=== PATIENT | male | born 1940 | race Caucasian/White ===

== ENCOUNTER 2019-08-05 14:55 | Emergency (ER) | payer MEDICARE, MEDICAID ==
[~2019-08-05] VITALS: Ht 180.3 cm; Wt 92.3 kg
[2019-08-05] MEDS ORDERED: ipratropium/albuterol 3ml nebule NEB ONE (15:25)
[2019-08-05] MEDS ORDERED: BENZ-16 PO (15:49)
[2019-08-05] MEDS ORDERED: AZIT500T PO (15:49)
[2019-08-05 16:43] VITALS: BP 146/89
== END 2019-08-05 16:49 | disposition home or self-care (01) ==
LOC: ER 14:56
DX: J44.1 Chronic obstructive pulmonary disease with (acute) exacerbation (principal); F17.200 Nicotine dependence, unspecified, uncomplicated; Z79.2 Long term (current) use of antibiotics; Z79.899 Other long term (current) drug therapy
CPT/HCPCS: 71045; 94640; 94760; 99283

== ENCOUNTER 2019-08-09 10:44 | Inpatient (IN) | payer MEDICARE, MEDICAID ==
[~2019-08-09] VITALS: Ht 180.3 cm; Wt 92.0 kg
[~2019-08-09 10:44] MED LIST: AZIT500T PO; BENZ-16 PO
[2019-08-09] MEDS ORDERED: CefTRIAXone 2gm/D5W 50ml 50 ML IV ONE (12:25)
[2019-08-09] MEDS ORDERED: methylPREDNISolone sod succ 125mg/2ml vial IV ONE (12:25)
[2019-08-09] MEDS ORDERED: normal saline 1000ML IV soln IVB ONE (12:25)
[2019-08-09] MEDS ORDERED: ipratropium/albuterol 3ml nebule NEB ONE (12:25)
[2019-08-09 12:51] LABS: BASOPHILS # (AUTO) 0.1 X10'3 (0-0.2); BASOPHILS % (AUTO) 0.9 % (0-1); EOSINOPHILS % (AUTO) 0.3 % (0-6); HEMATOCRIT 48.1 % (42.0-52.0); LYMPHOCYTES # (AUTO) 1.9 X10'3 (1.1-4.8); LYMPHOCYTES % (AUTO) 21.9 % (21-51); MEAN CORPUSCULAR HEMOGLOBIN 30.7 PG (27.0-31.0); MEAN CORPUSCULAR HGB CONC 33.3 g/dL (33.0-36.5); MEAN PLATELET VOLUME 8.5 FL (7.4-10.4); MONOCYTES # (AUTO) 0.6 X10'3 (0-0.9); MONOCYTES % (AUTO) 7.5 % (2-12); NEUTROPHILS # (AUTO) 5.9 X10'3 (1.8-7.7); NEUTROPHILS % (AUTO) 69.4 % (42-75); PLATELET COUNT 313 X10'3 (140-440); RED BLOOD COUNT 5.22 X10'6 (4.70-6.10); RED CELL DISTRIBUTION WIDTH 14.6 % (11.5-14.5); WHITE BLOOD COUNT 8.6 X10'3 (4.5-11.0)
[2019-08-09 13:03] LABS: PARTIAL THROMBOPLASTIN TIME 29 SECONDS (22-32)
[2019-08-09 13:16] LABS: ALANINE AMINOTRANSFERASE 22 U/L (12-78); ALBUMIN 3.1 G/DL (3.4-5.0); ALBUMIN/GLOBULIN RATIO 0.6 (1.1-1.5); ALKALINE PHOSPHATASE 131 IU/L (46-116); ANION GAP 5 (8-16); ASPARTATE AMINO TRANSFERASE 16 U/L (10-37); BILIRUBIN,TOTAL 0.5 MG/DL (0.1-1.0); BLOOD UREA NITROGEN 11 MG/DL (7-18); BUN/CREATININE RATIO 10.9 (5.4-32.0); CALCIUM 9.7 MG/DL (8.5-10.1); CHLORIDE 102 MMOL/L (99-107); CREATININE 1.01 MG/DL (0.60-1.10); GLUCOSE 246 MG/DL (70-104); MAGNESIUM 1.9 MG/DL (1.5-2.4); SODIUM 138 MMOL/L (135-145); TOTAL CARBON DIOXIDE 30.8 MMOL/L (24-32); TOTAL PROTEIN 8.2 G/DL (6.4-8.2); eGFR 72 ML/MIN
[2019-08-09] MEDS ORDERED: azithromycin/NS 500mg/250ml 250 ML IV ONE (13:20)
[2019-08-09] MEDS ORDERED: ondansetron/PF 4mg/2ml inj IV PRN (13:40)
[2019-08-09] MEDS ORDERED: magnesium 4gm in 100ml NS 100 ML IV PRN (13:40)
[2019-08-09] MEDS ORDERED: potassium Cl 20 mEq SR tablet PO PRN ×2 (13:40)
[2019-08-09] MEDS ORDERED: magnesium Cl slow-release 64mg tablet PO PRN (13:40)
[2019-08-09] MEDS ORDERED: magnesium 2GM in 50ml NS 50 ML IV PRN (13:40)
[2019-08-09] MEDS ORDERED: acetaminophen 325mg tablet PO PRN (13:40)
[2019-08-09] MEDS ORDERED: potassium CL 10mEq/100ml bag 100 ML IV PRN ×2 (13:40)
[2019-08-09] MEDS ORDERED: LISI10TA4 PO (14:03)
[2019-08-09] MEDS ORDERED: METF-950 PO (14:03)
[2019-08-09] MEDS ORDERED: ATOR-2 PO (14:03)
--- NOTE | 2019-08-09 15:18 | NUR ---
Patient states that he had a BM yesterday at home Addendum: 08/09/19 at 1521 by Sima Garcia RN Amended: Links added.
[2019-08-09 15:28] VITALS: BP 122/86
[2019-08-09] MEDS ORDERED: FLU VACC QS 2019-20 (6 MOS UP) 60 MCG/0.5 ML VIAL IMVAC ONE (15:40)
--- NOTE | 2019-08-09 18:31 | NUR ---
Problems reprioritized. Patient report given, questions answered & plan of care reviewed with Malick RIVAS.
--- NOTE | 2019-08-09 18:52 | NUR ---
Patient in room PCU 3021J. I have received report from ROB Gao and had the opportunity to ask questions and assume patient care. Patient sitting up at bedside with son. On 2L NC and is saline locked at this time. Per day shift RN report, no DM protocol ordered even though patient is type 2 diabetic and takes metformin at home. Will follow up with night time provider.
[2019-08-09 19:00] VITALS: BP 143/79
[2019-08-09] MEDS ORDERED: dextrose ORAL solution 15 GM/59 ML bottle PO PRN ×2 (19:00)
[2019-08-09] MEDS ORDERED: MESSAGE TO PHARMACY PO ONE (19:00)
[2019-08-09] MEDS ORDERED: glucagon, human recombinant 1mg kit SUBCUT PRN (19:00)
[2019-08-09] MEDS ORDERED: insulin Lispro (HumaLOG) vial - multi-dose SQ SCH (19:00)
[2019-08-09] MEDS ORDERED: dextrose 50%-water 50ml dispensing syringe IV PRN ×2 (19:00)
--- NOTE | 2019-08-09 19:02 | NUR ---
Per Dr. Gray's orders, will start patient on DM protocol. CO2 30.8, anion gap 5, patient eating solid food. Will continue to monitor closely.
[2019-08-09] MEDS: K and/or MAG REPLACEMENT MC SCH (19:53)
[2019-08-09] MEDS: methylPREDNISolone sod succ/PF 40mg inj. IV SCH (19:57)
[2019-08-09] MEDS: heparin, porcine 5000 units/ml vial SQ SCH (19:57)
[2019-08-09] MEDS: ipratropium/albuterol 3ml nebule NEB SCH ×2 (20:46→23:17)
[2019-08-09] MEDS: insulin glargine (Lantus) pen - multi-dose SQ SCH (21:55)
--- NOTE | 2019-08-09 22:00 | NUR ---
Patient blood glucose level 246 at 1229 in ER. Initiated DM protocol that had not been started by day shift RN despite given orders. 2143 blood glucose 164. 12 units Lantus administered per nursing judgement, even though patient has not met protocol standards. Will continue to monitor closely.
[2019-08-09 23:00] VITALS: BP 106/69
[2019-08-09 23:10] LABS: ABG BASE EXCESS 2.3 mmol/L (-2.0-3.0); ABG HCO3 27.9 mmol/L (22.0-26.0); ABG OXYGEN SATURATION 94.5 % (95-98); ABG PCO2 (T) 46.8 mmHg (35.0-45.0); ABG PH (T) 7.393 (7.350-7.450); ABG PO2 (T) 72.2 mmHg (83-108); ALLEN'S TEST POSITIVE; FCOHb 0.2 % (0.5-1.5); FLOW 2 L/min; FMetHb 0.2 % (0.3-1.12); FO2Hb 94.1 % (94-100); TOTAL HEMOGLOBIN 15.3 G/dl (14.0-17.9)
[2019-08-10 03:00] VITALS: BP 148/70
[2019-08-10] MEDS: ipratropium/albuterol 3ml nebule NEB SCH ×6 (03:24→23:26)
[2019-08-10 05:18] LABS: BASOPHILS % (AUTO) 0.1 % (0-1); EOSINOPHILS % (AUTO) 0 % (0-6); HEMATOCRIT 44.3 % (42.0-52.0); HEMOGLOBIN 14.3 g/dl (14.0-17.9); LYMPHOCYTES # (AUTO) 1.5 X10'3 (1.1-4.8); LYMPHOCYTES % (AUTO) 13.1 % (21-51); MEAN CORPUSCULAR HEMOGLOBIN 29.8 PG (27.0-31.0); MEAN CORPUSCULAR HGB CONC 32.3 g/dL (33.0-36.5); MEAN PLATELET VOLUME 8.5 FL (7.4-10.4); MONOCYTES # (AUTO) 0.5 X10'3 (0-0.9); NEUTROPHILS # (AUTO) 9.3 X10'3 (1.8-7.7); NEUTROPHILS % (AUTO) 82.8 % (42-75); PLATELET COUNT 297 X10'3 (140-440); RED BLOOD COUNT 4.81 X10'6 (4.70-6.10); RED CELL DISTRIBUTION WIDTH 14.6 % (11.5-14.5); WHITE BLOOD COUNT 11.3 X10'3 (4.5-11.0)
[2019-08-10 05:34] LABS: ALBUMIN 2.8 G/DL (3.4-5.0); ANION GAP 6 (8-16); BLOOD UREA NITROGEN 15 MG/DL (7-18); BUN/CREATININE RATIO 19.2 (5.4-32.0); CALCIUM 9.1 MG/DL (8.5-10.1); CHLORIDE 104 MMOL/L (99-107); CREATININE 0.78 MG/DL (0.60-1.10); GLUCOSE 165 MG/DL (70-104); MAGNESIUM 1.8 MG/DL (1.5-2.4); SODIUM 138 MMOL/L (135-145); TOTAL CARBON DIOXIDE 28.3 MMOL/L (24-32); eGFR > 90 ML/MIN
[2019-08-10 05:36] LABS: POTASSIUM 4.5 MMOL/L (3.5-5.1)
[2019-08-10 06:00] VITALS: BP 119/58
--- NOTE | 2019-08-10 06:24 | NUR ---
Problems reprioritized. Patient report given, questions answered & plan of care reviewed with ROB Shields.
[2019-08-10] MEDS: heparin, porcine 5000 units/ml vial SQ SCH ×2 (07:54→20:00)
[2019-08-10] MEDS: K and/or MAG REPLACEMENT MC SCH ×2 (08:00→20:00)
[2019-08-10] MEDS: azithromycin/NS 500mg/250ml 250 ML IV SCH (08:01)
[2019-08-10] MEDS: methylPREDNISolone sod succ/PF 40mg inj. IV SCH ×2 (08:01→20:00)
[2019-08-10 08:54] LABS: CLARITY,URINE CLEAR (Clear); COLOR,URINE YELLOW (Yellow); GLUCOSE, URINE NEGATIVE (Neg); KETONES,URINE NEGATIVE (Neg); LEUKOCYTE ESTERASE ,URINE NEGATIVE (Neg); NITRITES, URINE NEGATIVE (Neg); OCCULT BLOOD,URINE NEGATIVE (Neg); PROTEIN,URINE 100 mg/dl (Neg); UROBILINOGEN,URINE 0.2 E.U/dL (0.2-1.0)
[2019-08-10 08:56] LABS: UA COLLECTION TYPE CLN CATCH MIDSTREAM
[2019-08-10 09:00] LABS: RBC,URINE NONE SEEN /HPF (0-2); WBC,URINE 0-4 /HPF (0-4)
[2019-08-10 09:01] LABS: BACTERIA,URINE NONE SEEN /HPF (Neg); HYALINE CASTS 0-3 /LPF (NEGATIVE); MUCUS STRANDS MANY /LPF (Neg); SQUAMOUS EPITHELIAL CELL,UR FEW /LPF (FEW)
[2019-08-10] MEDS: lisinopril 10 MG tablet PO SCH (12:07)
[2019-08-10] MEDS: CefTRIAXone/D5W-Rocephin 1gm 50 ML IV SCH (12:13)
[2019-08-10 15:00] VITALS: BP 129/64
--- NOTE | 2019-08-10 18:28 | NUR ---
Problems reprioritized. Patient report given, questions answered & plan of care reviewed with Malick RIVAS.
[2019-08-10 18:51] VITALS: BP 131/63
[2019-08-10] MEDS: lactobacillus rhamnosus 10,000 MMU CELLS/CAPSULE PO SCH (20:00)
[2019-08-10] MEDS: insulin glargine (Lantus) pen - multi-dose SQ SCH (21:00)
[2019-08-10 23:00] VITALS: BP 138/79
[2019-08-11 03:00] VITALS: BP 112/63
[2019-08-11] MEDS: ipratropium/albuterol 3ml nebule NEB SCH ×4 (03:38→15:29)
[2019-08-11 06:08] LABS: BASOPHILS % (AUTO) 0.1 % (0-1); EOSINOPHILS % (AUTO) 0 % (0-6); HEMATOCRIT 41.8 % (42.0-52.0); HEMOGLOBIN 13.7 g/dl (14.0-17.9); LYMPHOCYTES # (AUTO) 1.8 X10'3 (1.1-4.8); LYMPHOCYTES % (AUTO) 11.5 % (21-51); MEAN CORPUSCULAR HEMOGLOBIN 30.1 PG (27.0-31.0); MEAN CORPUSCULAR HGB CONC 32.8 g/dL (33.0-36.5); MEAN CORPUSCULAR VOLUME 91.9 FL (78-98); MEAN PLATELET VOLUME 8.4 FL (7.4-10.4); MONOCYTES % (AUTO) 6.3 % (2-12); NEUTROPHILS # (AUTO) 12.5 X10'3 (1.8-7.7); NEUTROPHILS % (AUTO) 82.1 % (42-75); PLATELET COUNT 290 X10'3 (140-440); RED BLOOD COUNT 4.55 X10'6 (4.70-6.10); RED CELL DISTRIBUTION WIDTH 14.8 % (11.5-14.5); WHITE BLOOD COUNT 15.3 X10'3 (4.5-11.0)
--- NOTE | 2019-08-11 06:09 | NUR ---
Problems reprioritized. Patient report given, questions answered & plan of care reviewed with ROB Thomas.
[2019-08-11 06:16] LABS: ALBUMIN 2.8 G/DL (3.4-5.0); ANION GAP 1 (8-16); BLOOD UREA NITROGEN 19 MG/DL (7-18); BUN/CREATININE RATIO 22.6 (5.4-32.0); CALCIUM 9.1 MG/DL (8.5-10.1); CHLORIDE 104 MMOL/L (99-107); CREATININE 0.84 MG/DL (0.60-1.10); GLUCOSE 129 MG/DL (70-104); POTASSIUM 4.8 MMOL/L (3.5-5.1); SODIUM 139 MMOL/L (135-145); TOTAL CARBON DIOXIDE 33.8 MMOL/L (24-32); eGFR 89 ML/MIN
--- NOTE | 2019-08-11 06:24 | NUR ---
Patient in room PCU 3026V. I have received report from Malick RIVAS and had the opportunity to ask questions and assume patient care.
[2019-08-11 06:30] VITALS: BP 153/75
[2019-08-11] MEDS ORDERED: pantoprazole 40mg Tablet.DR PO SCH (07:30)
[2019-08-11] MEDS: CefTRIAXone/D5W-Rocephin 1gm 50 ML IV SCH (07:58)
[2019-08-11] MEDS: methylPREDNISolone sod succ/PF 40mg inj. IV SCH (07:58)
[2019-08-11] MEDS: lactobacillus rhamnosus 10,000 MMU CELLS/CAPSULE PO SCH (07:59)
[2019-08-11] MEDS: lisinopril 10 MG tablet PO SCH (07:59)
[2019-08-11] MEDS: heparin, porcine 5000 units/ml vial SQ SCH (08:00)
[2019-08-11] MEDS ORDERED: atorvastatin 20mg tablet PO SCH (08:00)
[2019-08-11] MEDS: K and/or MAG REPLACEMENT MC SCH (08:00)
[2019-08-11] MEDS: azithromycin/NS 500mg/250ml 250 ML IV SCH (09:05)
[2019-08-11 11:00] VITALS: BP 105/34
--- NOTE | 2019-08-11 11:47 | NUR ---
PAGER ID: [phone] MESSAGE: Martha mccoy [phone]. Re Greg Fox 3025A. Can I have and order for a flutter valve and incentive spirometer? Thank you!
--- NOTE | 2019-08-11 15:21 | NUR ---
O2 Sat at rest on room air:_85__% If below 89%: Recovery O2 Sat at rest on __2_LPM:__92_%:___% via___nasal cannula (mask/nasal cannula, etc..) No further documentation is necessary. If O2 Sat did not drop below 89% on room air,ambulate patient on room air. O2 Sat while ambulating on room air:___% Recovery O2 Sat while ambulating on ___LPM:___% No further documentation is necessary. If patient does not drop below 89% while ambulating, he/she does not qualify for home O2.
--- NOTE | 2019-08-11 15:27 | NUR ---
Zafar GARCIA PAGER ID: [phone] MESSAGE: Martha [email or web address] [phone]. RE Greg Fox 3025A. [facility] chest x-ray showed "opacity along the medial right lower lobe is decreased from the previous exam." PT also walked 300 ft with 2 L O2 via NC, was 85% on room air-- qualified for O2.
--- NOTE | 2019-08-11 15:55 | NUR ---
Called case management to make aware that patient qualifies for home 02 and also paged MD to make aware. Waiting to hear back if case management will be able to setup O2 for this evening, discharge pending.
[2019-08-11] MEDS ORDERED: PRED10TA23 PO (16:10)
[2019-08-11] MEDS ORDERED: ALBU8.5H8 INH (16:10)
[2019-08-11] MEDS ORDERED: LACT1CAP26 PO (16:10)
[2019-08-11] MEDS ORDERED: LEVO750T46 PO (16:10)
[2019-08-11] MEDS ORDERED: PANT40TA4 PO (16:10)
[2019-08-11] MEDS ORDERED: BUDE10.22 INH (16:10)
[2019-08-11] MEDS ORDERED: levoFLOXACIN 750MG TABLET PO ONE (16:15)
--- NOTE | 2019-08-11 17:28 | NUR ---
Per MD, patient stable for discharge home. Discharge packet completed and provided to patient. All questions answered. Patient also provided with flutter valve and incentive spirometer, education given and patient returned demonstration. New prescriptions faxed to [facility] [employer] per patient pharmacy preference. IV removed with catheter intact and tele monitor removed and returned to telegrapher agent. Oxygen delivered by [facility] and given to patient for discharge. All belongings sent with patient. Patient escorted from hospital via wheelchair and accompanied by staff and friend. Patient driven home via private vehicle
== END 2019-08-11 17:28 | disposition home or self-care (01) | DRG 193 ==
LOC: ER 10:45 → UNDOADMIN 13:39 → ED HOLD 13:39 → PCU 3S 14:39 → ED HOLD 15:25
PROVIDERS: ADMIT Internal Medicine; ATTEND Family Medicine
DX: J18.9 Pneumonia, unspecified organism (principal); J96.90 Respiratory failure, unspecified, unspecified whether with hypoxia or hypercapnia; J44.1 Chronic obstructive pulmonary disease with (acute) exacerbation; E11.65 Type 2 diabetes mellitus with hyperglycemia; E78.00 Pure hypercholesterolemia, unspecified; E78.5 Hyperlipidemia, unspecified; F12.90 Cannabis use, unspecified, uncomplicated; F17.210 Nicotine dependence, cigarettes, uncomplicated; I10 Essential (primary) hypertension; Z79.84 Long term (current) use of oral hypoglycemic drugs; Z79.899 Other long term (current) drug therapy; Z28.21 Immunization not carried out because of patient refusal
CPT/HCPCS: 36415; 36600; 71046; 80048; 80053; 81001; 82803; 82948; 83036; 83605; 83735; 83880; 84145; 84484; 85018; 85025; 85610; 85730; 87040; 87081; 93005; 94640; 94760; G0378; J0456; J0696; J1644; J1815; J2920; J2930; J7030; Q2037

== ENCOUNTER 2020-09-20 09:59 | Emergency (ER) | payer MEDICARE, MEDICAID ==
[~2020-09-20] VITALS: Ht 177.8 cm; Wt 95.0 kg
[~2020-09-20 09:59] MED LIST changes: +ALBU8.5H8 INH; +ATOR-2 PO; -AZIT500T PO; -BENZ-16 PO; +BUDE10.22 INH; +LACT1CAP26 PO; +LISI10TA27 PO; +METF-950 PO; +PANT40TA54 PO
[2020-09-20 11:04] LABS: BASOPHILS # (AUTO) 0.1 X10'3 (0-0.2); BASOPHILS % (AUTO) 0.9 % (0-1); EOSINOPHILS # (AUTO) 0.3 X10'3 (0-0.9); EOSINOPHILS % (AUTO) 3.1 % (0-6); HEMATOCRIT 50.2 % (42.0-52.0); HEMOGLOBIN 16.5 g/dl (14.0-17.9); LYMPHOCYTES # (AUTO) 2.3 X10'3 (1.1-4.8); MEAN CORPUSCULAR HEMOGLOBIN 31.4 PG (27.0-31.0); MEAN CORPUSCULAR HGB CONC 32.9 g/dL (33.0-36.5); MEAN CORPUSCULAR VOLUME 95.4 FL (78-98); MEAN PLATELET VOLUME 7.6 FL (7.4-10.4); MONOCYTES # (AUTO) 0.7 X10'3 (0-0.9); MONOCYTES % (AUTO) 7.4 % (2-12); NEUTROPHILS # (AUTO) 6.1 X10'3 (1.8-7.7); NEUTROPHILS % (AUTO) 64.6 % (42-75); PLATELET COUNT 273 X10'3 (140-440); RED BLOOD COUNT 5.27 X10'6 (4.70-6.10); RED CELL DISTRIBUTION WIDTH 15.1 % (11.5-14.5); WHITE BLOOD COUNT 9.5 X10'3 (4.5-11.0)
[2020-09-20] MEDS ORDERED: ipratropium/albuterol 3ml nebule NEB ONE (11:10)
[2020-09-20 11:17] LABS: ALANINE AMINOTRANSFERASE 23 U/L (12-78); ALBUMIN 3.4 G/DL (3.4-5.0); ALBUMIN/GLOBULIN RATIO 0.7 (1.1-1.5); ALKALINE PHOSPHATASE 133 IU/L (46-116); ANION GAP 7 (8-16); ASPARTATE AMINO TRANSFERASE 14 U/L (10-37); BILIRUBIN,TOTAL 0.8 MG/DL (0.1-1.0); BLOOD UREA NITROGEN 12 MG/DL (7-18); BUN/CREATININE RATIO 15.8 (5.4-32.0); CALCIUM 9.5 MG/DL (8.5-10.1); CHLORIDE 102 MMOL/L (99-107); CREATININE 0.76 MG/DL (0.60-1.10); GLUCOSE 138 MG/DL (70-104); POTASSIUM 4.5 MMOL/L (3.5-5.1); SODIUM 140 MMOL/L (135-145); TOTAL CARBON DIOXIDE 30.7 MMOL/L (24-32); TOTAL PROTEIN 8.1 G/DL (6.4-8.2); eGFR > 90 ML/MIN
[2020-09-20] MEDS ORDERED: IPRA3AMP31 IH (11:38)
[2020-09-20] MEDS ORDERED: BUDE10.22 INH (11:38)
[2020-09-20 12:14] VITALS: BP 138/79
== END 2020-09-20 12:15 | disposition home or self-care (01) ==
LOC: ER 09:59
DX: J44.1 Chronic obstructive pulmonary disease with (acute) exacerbation (principal); E78.00 Pure hypercholesterolemia, unspecified; I10 Essential (primary) hypertension; E11.9 Type 2 diabetes mellitus without complications; F17.200 Nicotine dependence, unspecified, uncomplicated; F12.90 Cannabis use, unspecified, uncomplicated; Z79.899 Other long term (current) drug therapy; Z79.84 Long term (current) use of oral hypoglycemic drugs
CPT/HCPCS: 36415; 71045; 80053; 83880; 84484; 85025; 93005; 94640; 94760; 99285

== ENCOUNTER 2021-11-03 16:05 | Emergency (ER) | payer MEDICARE, MEDICAID ==
[~2021-11-03] VITALS: Ht 180.3 cm; Wt 90.9 kg
[~2021-11-03 16:05] MED LIST changes: +ALBU8.5H17 INH; -ALBU8.5H8 INH; +COR3.125T PO; +ERGO500041 PO; +FURO-150 PO; +IPRA3AMP31 IH; -LACT1CAP26 PO; +METF-1203 PO; -METF-950 PO; +PANT40SU2 PO; -PANT40TA54 PO; +PRED20TA PO
--- NOTE | 2021-11-03 16:41 | NUR ---
NOTIFIED REJI GALEANA THAT PT IS SOB HR IN BTW 120-150'S .ORDERED ACS PROTOCOL ,ORIGINIAL CAME FOR CONSTIPATION.
--- NOTE | 2021-11-03 16:46 | NUR ---
PT USING BEDSIDECOMMODE AT THIS TIME.
[2021-11-03] MEDS ORDERED: potassium chloride 8mEq ER tablet PO STA (17:04)
[2021-11-03] MEDS ORDERED: furosemide 10 MG/1 ML 10ml inj IV ONE (17:05)
[2021-11-03] MEDS ORDERED: potassium Cl 20 mEq SR tablet PO STA (17:29)
[2021-11-03 17:34] LABS: BASOPHILS % (AUTO) 0.3 % (0-1); EOSINOPHILS % (AUTO) 0.3 % (0-6); HEMOGLOBIN 13.3 g/dl (14.0-17.9); LYMPHOCYTES # (AUTO) 1.3 X10'3 (1.1-4.8); LYMPHOCYTES % (AUTO) 9.3 % (21-51); MEAN CORPUSCULAR HEMOGLOBIN 28.7 PG (27.0-31.0); MEAN CORPUSCULAR HGB CONC 31.6 g/dL (33.0-36.5); MEAN PLATELET VOLUME 8.2 FL (7.4-10.4); MONOCYTES # (AUTO) 1.3 X10'3 (0-0.9); NEUTROPHILS # (AUTO) 11.8 X10'3 (1.8-7.7); NEUTROPHILS % (AUTO) 81.1 % (42-75); PLATELET COUNT 245 X10'3 (140-440); RED BLOOD COUNT 4.62 X10'6 (4.70-6.10); RED CELL DISTRIBUTION WIDTH 16.6 % (11.5-14.5); WHITE BLOOD COUNT 14.5 X10'3 (4.5-11.0)
[2021-11-03 17:47] LABS: ALANINE AMINOTRANSFERASE 82 U/L (12-78); ALBUMIN 2.4 G/DL (3.4-5.0); ALBUMIN/GLOBULIN RATIO 0.5 (1.1-1.5); ALKALINE PHOSPHATASE 113 IU/L (46-116); ANION GAP 3 (8-16); ASPARTATE AMINO TRANSFERASE 34 U/L (10-37); BILIRUBIN,TOTAL 1.1 MG/DL (0.1-1.0); BLOOD UREA NITROGEN 22 MG/DL (7-18); BUN/CREATININE RATIO 25.3 (5.4-32.0); CALCIUM 8.7 MG/DL (8.5-10.1); CHLORIDE 100 MMOL/L (99-107); CREATININE 0.87 MG/DL (0.60-1.10); GLUCOSE 147 MG/DL (70-104); POTASSIUM 4.4 MMOL/L (3.5-5.1); SODIUM 137 MMOL/L (135-145); TOTAL CARBON DIOXIDE 33.7 MMOL/L (24-32); TOTAL PROTEIN 6.8 G/DL (6.4-8.2); eGFR 85 ML/MIN
[2021-11-03] MEDS ORDERED: mineral oil 133ml enema RC PRN (18:15)
--- NOTE | 2021-11-03 18:17 | NUR ---
notified lyle ma that pt is still c/o constipation ,uncomfortable moving up and down out of bed ,requesting for enema .hr still in btw 100-130's.
--- NOTE | 2021-11-03 18:30 | NUR ---
mineral oil enema admin .financial services sales representative at bedside for assistance,pt did had small hard bm before admin mineral oil enema.
[2021-11-03] MEDS ORDERED: LACT10SO57 PO ×2 (19:15)
[2021-11-03 20:29] VITALS: BP 134/96
[2021-11-11] MEDS ORDERED: LACT10SO3 PO (16:44)
[2021-11-11] MEDS ORDERED: ALBU8.5H17 INH (17:17)
[2021-11-11] MEDS ORDERED: FURO20TA4 PO (17:26)
[2021-11-11] MEDS ORDERED: CARV3.122 PO (17:26)
== END 2021-11-03 20:32 | disposition home or self-care (01) ==
LOC: ER 16:06
DX: K59.00 Constipation, unspecified (principal); I11.0 Hypertensive heart disease with heart failure; I50.9 Heart failure, unspecified; E78.00 Pure hypercholesterolemia, unspecified; J44.9 Chronic obstructive pulmonary disease, unspecified; E11.9 Type 2 diabetes mellitus without complications; F12.90 Cannabis use, unspecified, uncomplicated; Z87.01 Personal history of pneumonia (recurrent); Z79.899 Other long term (current) drug therapy
CPT/HCPCS: 36415; 71045; 80053; 83880; 84484; 85025; 93005; 96374; 99285; J1940

== ENCOUNTER 2022-03-04 02:37 | Emergency (ER) | payer MEDICARE, MEDICAID ==
[~2022-03-04] VITALS: Ht 177.8 cm; Wt 92.3 kg
[~2022-03-04 02:37] MED LIST changes: +ALBU18HF2 IH; -ALBU8.5H17 INH; +AMIO200T67 PO; +APIX5TAB3 PO; +CARV3.122 PO; +CEPH250T PO; -COR3.125T PO; -ERGO500041 PO; +FLUC100T64 PO; +LACT1CAP26 PO; -LISI10TA27 PO; +LISI5TAB22 PO; -METF-1203 PO; +METF-436 PO; -PANT40SU2 PO; +POTA10TA PO; -PRED20TA PO
[2022-03-04 02:40] VITALS: BP 101/74
[2022-03-04 03:20] LABS: ALANINE AMINOTRANSFERASE 73 U/L (12-78); ALBUMIN 2.3 G/DL (3.4-5.0); ALBUMIN/GLOBULIN RATIO 0.5 (1.1-1.5); ALKALINE PHOSPHATASE 131 IU/L (46-116); ANION GAP 3 (8-16); ASPARTATE AMINO TRANSFERASE 87 U/L (10-37); BILIRUBIN,TOTAL 0.5 MG/DL (0.1-1.0); BLOOD UREA NITROGEN 28 MG/DL (7-18); BUN/CREATININE RATIO 25.7 (5.4-32.0); CALCIUM 8.8 MG/DL (8.5-10.1); CHLORIDE 103 MMOL/L (99-107); CREATININE 1.09 MG/DL (0.60-1.10); GLUCOSE 139 MG/DL (70-104); SODIUM 141 MMOL/L (135-145); TOTAL CARBON DIOXIDE 34.8 MMOL/L (24-32); TOTAL PROTEIN 6.8 G/DL (6.4-8.2); eGFR 65 ML/MIN
[2022-03-04 03:30] LABS: POTASSIUM 4.9 MMOL/L (3.5-5.1)
[2022-03-04 03:34] LABS: BASOPHILS # (AUTO) 0.1 X10'3 (0-0.2); BASOPHILS % (AUTO) 1.1 % (0-1); EOSINOPHILS # (AUTO) 0.2 X10'3 (0-0.9); EOSINOPHILS % (AUTO) 2.9 % (0-6); HEMATOCRIT 33.3 % (42.0-52.0); HEMOGLOBIN 10.7 g/dl (14.0-17.9); LYMPHOCYTES # (AUTO) 1.9 X10'3 (1.1-4.8); LYMPHOCYTES % (AUTO) 22.9 % (21-51); MEAN CORPUSCULAR HEMOGLOBIN 30.8 PG (27.0-31.0); MEAN CORPUSCULAR VOLUME 96.1 FL (78-98); MEAN PLATELET VOLUME 8.8 FL (7.4-10.4); MONOCYTES # (AUTO) 0.7 X10'3 (0-0.9); MONOCYTES % (AUTO) 8.4 % (2-12); NEUTROPHILS # (AUTO) 5.3 X10'3 (1.8-7.7); NEUTROPHILS % (AUTO) 64.7 % (42-75); PLATELET COUNT 190 X10'3 (140-440); RED BLOOD COUNT 3.47 X10'6 (4.70-6.10); RED CELL DISTRIBUTION WIDTH 18.1 % (11.5-14.5); WHITE BLOOD COUNT 8.2 X10'3 (4.5-11.0)
[2022-03-04] MEDS ORDERED: furosemide 10 MG/1 ML 10ml inj IV ONE (04:30)
[2022-03-04 05:43] LABS: PLATELET ESTIMATE NORMAL; TOTAL CELLS COUNTED 100
[2022-03-04 05:44] LABS: ANISOCYTOSIS 2+
== END 2022-03-04 07:09 | disposition home or self-care (01) ==
LOC: ER 02:37
DX: I11.0 Hypertensive heart disease with heart failure (principal); I50.9 Heart failure, unspecified; J44.9 Chronic obstructive pulmonary disease, unspecified; F12.90 Cannabis use, unspecified, uncomplicated; Z91.041 Radiographic dye allergy status
CPT/HCPCS: 36415; 71045; 80053; 83880; 84484; 85007; 85025; 85610; 93005; 96374; 99285; J1940

== ENCOUNTER 2022-03-09 12:55 | Emergency (ER) | payer MEDICARE, MEDICAID ==
[~2022-03-09] VITALS: Ht 180.3 cm; Wt 92.0 kg
[2022-03-09 15:02] LABS: BASOPHILS # (AUTO) 0.1 X10'3 (0-0.2); BASOPHILS % (AUTO) 1.2 % (0-1); EOSINOPHILS # (AUTO) 0.1 X10'3 (0-0.9); EOSINOPHILS % (AUTO) 1.2 % (0-6); HEMATOCRIT 33.1 % (42.0-52.0); HEMOGLOBIN 10.7 g/dl (14.0-17.9); LYMPHOCYTES # (AUTO) 1.4 X10'3 (1.1-4.8); LYMPHOCYTES % (AUTO) 23.8 % (21-51); MEAN CORPUSCULAR HEMOGLOBIN 30.8 PG (27.0-31.0); MEAN CORPUSCULAR HGB CONC 32.2 g/dL (33.0-36.5); MEAN CORPUSCULAR VOLUME 95.6 FL (78-98); MONOCYTES # (AUTO) 0.6 X10'3 (0-0.9); MONOCYTES % (AUTO) 10.5 % (2-12); NEUTROPHILS # (AUTO) 3.7 X10'3 (1.8-7.7); NEUTROPHILS % (AUTO) 63.3 % (42-75); PLATELET COUNT 257 X10'3 (140-440); RED BLOOD COUNT 3.47 X10'6 (4.70-6.10); RED CELL DISTRIBUTION WIDTH 17.8 % (11.5-14.5); WHITE BLOOD COUNT 5.8 X10'3 (4.5-11.0)
[2022-03-09 15:08] LABS: ALANINE AMINOTRANSFERASE 45 U/L (12-78); ALBUMIN 2.6 G/DL (3.4-5.0); ALBUMIN/GLOBULIN RATIO 0.6 (1.1-1.5); ALKALINE PHOSPHATASE 158 IU/L (46-116); ANION GAP 3 (8-16); ASPARTATE AMINO TRANSFERASE 28 U/L (10-37); BILIRUBIN,TOTAL 0.4 MG/DL (0.1-1.0); BLOOD UREA NITROGEN 41 MG/DL (7-18); BUN/CREATININE RATIO 31.3 (5.4-32.0); CALCIUM 9.5 MG/DL (8.5-10.1); CHLORIDE 102 MMOL/L (99-107); CREATININE 1.31 MG/DL (0.60-1.10); GLUCOSE 128 MG/DL (70-104); POTASSIUM 4.8 MMOL/L (3.5-5.1); SODIUM 142 MMOL/L (135-145); TOTAL CARBON DIOXIDE 36.6 MMOL/L (24-32); TOTAL PROTEIN 7.3 G/DL (6.4-8.2); eGFR 53 ML/MIN
[2022-03-09 15:16] VITALS: BP_DIAS 63
[2022-03-09] MEDS ORDERED: potassium Cl 20 mEq SR tablet PO STA (16:34)
[2022-03-09] MEDS ORDERED: furosemide 10 MG/1 ML 10ml inj IV ONE (16:35)
[2022-03-09] MEDS ORDERED: metoprolol tartrate 1mg/ml inj IV ONE (17:25)
[2022-03-09 17:37] VITALS: BP_SYST 151
[2022-03-09] MEDS ORDERED: ipratropium/albuterol 3ml nebule NEB ONE (18:15)
[2022-03-09] MEDS ORDERED: methylPREDNISolone sod succ 125mg/2ml vial IM ONE (18:20)
== END 2022-03-09 19:50 | disposition home or self-care (01) ==
LOC: ER 12:55
DX: I11.0 Hypertensive heart disease with heart failure (principal); I50.9 Heart failure, unspecified; R06.02 Shortness of breath; R05.9 Cough, unspecified; R53.1 Weakness; E78.00 Pure hypercholesterolemia, unspecified; J44.9 Chronic obstructive pulmonary disease, unspecified; E11.9 Type 2 diabetes mellitus without complications; F12.90 Cannabis use, unspecified, uncomplicated; Z87.01 Personal history of pneumonia (recurrent); Z88.1 Allergy status to other antibiotic agents; Z79.2 Long term (current) use of antibiotics; Z79.899 Other long term (current) drug therapy
CPT/HCPCS: 36415; 71045; 80053; 83880; 84484; 85025; 93005; 94640; 96372; 96374; 96375; 99285; J1940; J2930; J3490; 94760

== ENCOUNTER 2022-03-11 20:36 | Emergency (ER) | payer MEDICARE, MEDICAID ==
[~2022-03-11] VITALS: Ht 177.8 cm; Wt 92.3 kg
[2022-03-11 22:05] LABS: BASOPHILS # (AUTO) 0.1 X10'3 (0-0.2); BASOPHILS % (AUTO) 0.7 % (0-1); EOSINOPHILS % (AUTO) 0.6 % (0-6); HEMATOCRIT 31.6 % (42.0-52.0); HEMOGLOBIN 10.5 g/dl (14.0-17.9); LYMPHOCYTES % (AUTO) 25.9 % (21-51); MEAN CORPUSCULAR HEMOGLOBIN 31.8 PG (27.0-31.0); MEAN CORPUSCULAR HGB CONC 33.3 g/dL (33.0-36.5); MEAN CORPUSCULAR VOLUME 95.4 FL (78-98); MEAN PLATELET VOLUME 7.7 FL (7.4-10.4); MONOCYTES # (AUTO) 0.7 X10'3 (0-0.9); NEUTROPHILS # (AUTO) 4.9 X10'3 (1.8-7.7); NEUTROPHILS % (AUTO) 63.8 % (42-75); PLATELET COUNT 286 X10'3 (140-440); RED BLOOD COUNT 3.32 X10'6 (4.70-6.10); RED CELL DISTRIBUTION WIDTH 18.2 % (11.5-14.5); WHITE BLOOD COUNT 7.6 X10'3 (4.5-11.0)
[2022-03-11 22:25] LABS: ALANINE AMINOTRANSFERASE 40 U/L (12-78); ALBUMIN 2.5 G/DL (3.4-5.0); ALBUMIN/GLOBULIN RATIO 0.6 (1.1-1.5); ALKALINE PHOSPHATASE 143 IU/L (46-116); ANION GAP 6 (8-16); ASPARTATE AMINO TRANSFERASE 21 U/L (10-37); BILIRUBIN,TOTAL 0.3 MG/DL (0.1-1.0); BLOOD UREA NITROGEN 44 MG/DL (7-18); BUN/CREATININE RATIO 34.4 (5.4-32.0); CALCIUM 9.2 MG/DL (8.5-10.1); CHLORIDE 101 MMOL/L (99-107); CREATININE 1.28 MG/DL (0.60-1.10); GLUCOSE 100 MG/DL (70-104); POTASSIUM 5.3 MMOL/L (3.5-5.1); SODIUM 141 MMOL/L (135-145); TOTAL CARBON DIOXIDE 33.7 MMOL/L (24-32); TOTAL PROTEIN 6.8 G/DL (6.4-8.2); eGFR 54 ML/MIN
[2022-03-11] MEDS ORDERED: furosemide 10 MG/1 ML 10ml inj IV ONE (23:30)
[2022-03-12 00:30] VITALS: BP 113/65
--- NOTE | 2022-03-12 00:58 | NUR ---
Cab called for patient, will arrive in approx 30-min. Pt to stay in room on O2 until cab arrives
[2022-03-15] MEDS ORDERED: FURO20TA4 PO (04:15)
[2022-03-15] MEDS ORDERED: AMIO200T61 PO (04:15)
[2022-03-15] MEDS ORDERED: APIX5TAB3 PO (15:35)
[2022-03-15] MEDS ORDERED: DOCO1CAP11 PO (15:40)
[2022-03-15] MEDS ORDERED: MULT-1085 PO (15:41)
[2022-03-15] MEDS ORDERED: LAN0.125T PO (15:43)
== END 2022-03-12 00:59 | disposition home or self-care (01) ==
LOC: ER 20:36
DX: R06.02 Shortness of breath (principal); I11.0 Hypertensive heart disease with heart failure; I50.9 Heart failure, unspecified; E78.00 Pure hypercholesterolemia, unspecified; J44.9 Chronic obstructive pulmonary disease, unspecified; E11.9 Type 2 diabetes mellitus without complications; F12.90 Cannabis use, unspecified, uncomplicated; Z87.01 Personal history of pneumonia (recurrent); Z88.1 Allergy status to other antibiotic agents; Z79.2 Long term (current) use of antibiotics; Z79.899 Other long term (current) drug therapy
CPT/HCPCS: 93005; 96374; 99285; J1940; 36415; 71045; 80053; 83880; 84484; 85025

== ENCOUNTER 2022-03-14 02:17 | Emergency (ER) | payer MEDICARE, MEDICAID ==
[~2022-03-14] VITALS: Ht 180.3 cm; Wt 92.3 kg
[2022-03-14 03:02] LABS: BASOPHILS % (AUTO) 0.7 % (0-1); EOSINOPHILS # (AUTO) 0.1 X10'3 (0-0.9); EOSINOPHILS % (AUTO) 1.6 % (0-6); HEMATOCRIT 35.5 % (42.0-52.0); LYMPHOCYTES # (AUTO) 1.8 X10'3 (1.1-4.8); LYMPHOCYTES % (AUTO) 27.1 % (21-51); MEAN CORPUSCULAR HEMOGLOBIN 30.5 PG (27.0-31.0); MEAN CORPUSCULAR VOLUME 98.2 FL (78-98); MONOCYTES # (AUTO) 0.6 X10'3 (0-0.9); MONOCYTES % (AUTO) 9.5 % (2-12); NEUTROPHILS % (AUTO) 61.1 % (42-75); PLATELET COUNT 269 X10'3 (140-440); RED BLOOD COUNT 3.61 X10'6 (4.70-6.10); WHITE BLOOD COUNT 6.6 X10'3 (4.5-11.0)
[2022-03-14 03:10] LABS: ALANINE AMINOTRANSFERASE 30 U/L (12-78); ALBUMIN 2.5 G/DL (3.4-5.0); ALBUMIN/GLOBULIN RATIO 0.6 (1.1-1.5); ALKALINE PHOSPHATASE 144 IU/L (46-116); ANION GAP 1 (8-16); ASPARTATE AMINO TRANSFERASE 21 U/L (10-37); BILIRUBIN,TOTAL 0.4 MG/DL (0.1-1.0); BLOOD UREA NITROGEN 34 MG/DL (7-18); BUN/CREATININE RATIO 27.9 (5.4-32.0); CALCIUM 8.8 MG/DL (8.5-10.1); CHLORIDE 101 MMOL/L (99-107); CREATININE 1.22 MG/DL (0.60-1.10); GLUCOSE 127 MG/DL (70-104); POTASSIUM 5.3 MMOL/L (3.5-5.1); SODIUM 136 MMOL/L (135-145); TOTAL CARBON DIOXIDE 34.3 MMOL/L (24-32); TOTAL PROTEIN 6.8 G/DL (6.4-8.2); eGFR 57 ML/MIN
[2022-03-14] MEDS ORDERED: furosemide 10 MG/1 ML 10ml inj IV ONE (03:25)
[2022-03-14 04:30] LABS: PLATELET ESTIMATE NORMAL
[2022-03-14 04:31] LABS: ANISOCYTOSIS 2+
--- NOTE | 2022-03-14 06:30 | NUR ---
PATIENT ASLEEP, NASAL CANULA RESTING ON RIGHT SIDE OF NOSE, SPO2 88%, PLACED NC BACK ONTO PATIENT, SPO2 91%. NO SIGNS OF DISTRESS NOTED, PATIENT CONTINUED TO SLEEP THROUGHOUT ASSESSMENT. ALL SAFETY MEASURES IN PLACE, WILL CONTINUE TO MONITOR.
[2022-03-14 07:00] VITALS: BP 106/58
[2022-03-15] MEDS ORDERED: AMIO200T61 PO (04:15)
[2022-03-15] MEDS ORDERED: FURO20TA4 PO (04:15)
[2022-03-15] MEDS ORDERED: APIX5TAB3 PO (15:35)
[2022-03-15] MEDS ORDERED: DOCO1CAP11 PO (15:40)
[2022-03-15] MEDS ORDERED: MULT-1085 PO (15:41)
[2022-03-15] MEDS ORDERED: LAN0.125T PO (15:43)
== END 2022-03-14 08:31 | disposition home or self-care (01) ==
LOC: ER 02:17
DX: I11.0 Hypertensive heart disease with heart failure (principal); I50.23 Acute on chronic systolic (congestive) heart failure; J44.9 Chronic obstructive pulmonary disease, unspecified; E11.9 Type 2 diabetes mellitus without complications; F12.90 Cannabis use, unspecified, uncomplicated; Z91.041 Radiographic dye allergy status
CPT/HCPCS: 93005; 96374; 99285; J1940; 36415; 71045; 80053; 83880; 84484; 85008; 85025

== ENCOUNTER 2022-03-26 07:22 | Emergency (ER) | payer MEDICARE, MEDICAID ==
[~2022-03-26] VITALS: Ht 180.3 cm; Wt 99.5 kg
[~2022-03-26 07:22] MED LIST changes: +AMIO200T61 PO; -AMIO200T67 PO; -BUDE10.22 INH; -CEPH250T PO; +DOCO1CAP11 PO; -FLUC100T64 PO; -FURO-150 PO; +FURO20TA4 PO; -LACT1CAP26 PO; +LAN0.125T PO; +MULT-1085 PO; +NICO-687 TD
[2022-03-26] MEDS ORDERED: predniSONE 20 mg tablet PO ONE (07:55)
[2022-03-26 09:16] LABS: BASOPHILS # (AUTO) 0.1 X10'3 (0-0.2); BASOPHILS % (AUTO) 0.9 % (0-1); EOSINOPHILS # (AUTO) 0.2 X10'3 (0-0.9); EOSINOPHILS % (AUTO) 1.6 % (0-6); HEMATOCRIT 31.5 % (42.0-52.0); HEMOGLOBIN 9.8 g/dl (14.0-17.9); LYMPHOCYTES # (AUTO) 1.6 X10'3 (1.1-4.8); LYMPHOCYTES % (AUTO) 14.3 % (21-51); MEAN CORPUSCULAR HEMOGLOBIN 30.5 PG (27.0-31.0); MEAN CORPUSCULAR HGB CONC 31.1 g/dL (33.0-36.5); MEAN CORPUSCULAR VOLUME 98.2 FL (78-98); MEAN PLATELET VOLUME 8.6 FL (7.4-10.4); MONOCYTES # (AUTO) 1.3 X10'3 (0-0.9); MONOCYTES % (AUTO) 11.4 % (2-12); NEUTROPHILS # (AUTO) 8.2 X10'3 (1.8-7.7); NEUTROPHILS % (AUTO) 71.8 % (42-75); PLATELET COUNT 166 X10'3 (140-440); RED BLOOD COUNT 3.21 X10'6 (4.70-6.10); RED CELL DISTRIBUTION WIDTH 18.3 % (11.5-14.5); WHITE BLOOD COUNT 11.4 X10'3 (4.5-11.0)
[2022-03-26 09:35] LABS: ALANINE AMINOTRANSFERASE 19 U/L (12-78); ALBUMIN 2.6 G/DL (3.4-5.0); ALBUMIN/GLOBULIN RATIO 0.6 (1.1-1.5); ALKALINE PHOSPHATASE 109 IU/L (46-116); ANION GAP 6 (8-16); ASPARTATE AMINO TRANSFERASE 25 U/L (10-37); BILIRUBIN,TOTAL 0.7 MG/DL (0.1-1.0); BLOOD UREA NITROGEN 31 MG/DL (7-18); BUN/CREATININE RATIO 27.4 (5.4-32.0); CALCIUM 9.7 MG/DL (8.5-10.1); CHLORIDE 103 MMOL/L (99-107); CREATININE 1.13 MG/DL (0.60-1.10); GLUCOSE 98 MG/DL (70-104); POTASSIUM 4.8 MMOL/L (3.5-5.1); SODIUM 139 MMOL/L (135-145); TOTAL PROTEIN 7.1 G/DL (6.4-8.2); eGFR 63 ML/MIN
[2022-03-26] MEDS ORDERED: DEXA4TAB67 PO (10:32)
[2022-03-26 13:07] VITALS: BP 116/63
== END 2022-03-26 13:10 | disposition home or self-care (01) ==
LOC: ER 07:23
DX: J44.1 Chronic obstructive pulmonary disease with (acute) exacerbation (principal); D53.9 Nutritional anemia, unspecified; I11.0 Hypertensive heart disease with heart failure; E78.00 Pure hypercholesterolemia, unspecified; E11.9 Type 2 diabetes mellitus without complications; F12.10 Cannabis abuse, uncomplicated; Z88.1 Allergy status to other antibiotic agents; Z79.899 Other long term (current) drug therapy; Z79.84 Long term (current) use of oral hypoglycemic drugs; Z79.1 Long term (current) use of non-steroidal anti-inflammatories (NSAID); Z79.2 Long term (current) use of antibiotics
CPT/HCPCS: 36415; 71045; 80053; 83880; 84484; 85025; 93005; 99285; J7512

== ENCOUNTER 2022-06-19 12:27 | Emergency (ER) | payer MEDICARE, MEDICAID ==
[~2022-06-19] VITALS: Ht 175.3 cm; Wt 82.7 kg
[~2022-06-19 12:27] MED LIST changes: -APIX5TAB3 PO; +EMPA10TA PO; +FURO-150 PO; -FURO20TA4 PO; -IPRA3AMP31 IH; +IPRA3AMP31 NEB; -METF-436 PO; -NICO-687 TD; +NICO-687 TOP; +RIVA20TA PO
[2022-06-19 13:37] VITALS: BP 91/54
[2022-06-19] MEDS ORDERED: normal saline 1000ML IV soln IVB ONE (14:10)
[2022-06-19 14:29] LABS: BASOPHILS # (AUTO) 0.1 X10'3 (0-0.2); BASOPHILS % (AUTO) 0.7 % (0-1); EOSINOPHILS # (AUTO) 0.2 X10'3 (0-0.9); EOSINOPHILS % (AUTO) 2.4 % (0-6); HEMATOCRIT 25.4 % (42.0-52.0); HEMOGLOBIN 7.9 g/dl (14.0-17.9); LYMPHOCYTES % (AUTO) 11.3 % (21-51); MEAN CORPUSCULAR HEMOGLOBIN 25.2 PG (27.0-31.0); MEAN CORPUSCULAR HGB CONC 31.2 g/dL (33.0-36.5); MEAN CORPUSCULAR VOLUME 80.9 FL (78-98); MEAN PLATELET VOLUME 6.6 FL (7.4-10.4); MONOCYTES # (AUTO) 1.1 X10'3 (0-0.9); NEUTROPHILS # (AUTO) 6.5 X10'3 (1.8-7.7); NEUTROPHILS % (AUTO) 73.6 % (42-75); PLATELET COUNT 476 X10'3 (140-440); RED BLOOD COUNT 3.14 X10'6 (4.70-6.10); RED CELL DISTRIBUTION WIDTH 18.8 % (11.5-14.5); WHITE BLOOD COUNT 8.8 X10'3 (4.5-11.0)
[2022-06-19 14:37] LABS: ALANINE AMINOTRANSFERASE 28 U/L (12-78); ALBUMIN/GLOBULIN RATIO 0.3 (1.1-1.5); ALKALINE PHOSPHATASE 121 IU/L (46-116); ANION GAP 8 (8-16); ASPARTATE AMINO TRANSFERASE 32 U/L (10-37); BILIRUBIN,TOTAL 0.7 MG/DL (0.1-1.0); BLOOD UREA NITROGEN 36 MG/DL (7-18); BUN/CREATININE RATIO 17.8 (5.4-32.0); CALCIUM 8.9 MG/DL (8.5-10.1); CHLORIDE 93 MMOL/L (99-107); CREATININE 2.02 MG/DL (0.60-1.10); GLUCOSE 123 MG/DL (70-104); POTASSIUM 4.8 MMOL/L (3.5-5.1); SODIUM 129 MMOL/L (135-145); TOTAL CARBON DIOXIDE 27.8 MMOL/L (24-32); TOTAL PROTEIN 8.1 G/DL (6.4-8.2); eGFR 32 ML/MIN
[2022-06-19 16:29] LABS: PLATELET ESTIMATE INCREASED; TOTAL CELLS COUNTED 100
[2022-06-19 16:30] LABS: ELLIPTOCYTES 1+
[2022-06-19 16:32] LABS: POLYCHROMASIA 1+
[2022-06-19 16:33] LABS: ANISOCYTOSIS 2+; BURR CELLS 1+; LARGE PLATELETS FEW; POIKILOCYTOSIS FEW; ROULEAUX 1+
== END 2022-06-19 15:58 | disposition home or self-care (01) ==
LOC: ER 12:28
DX: D64.9 Anemia, unspecified (principal); I13.0 Hypertensive heart and chronic kidney disease with heart failure and stage 1 through stage 4 chronic kidney disease, or unspecified chronic kidney disease; E11.22 Type 2 diabetes mellitus with diabetic chronic kidney disease; N18.9 Chronic kidney disease, unspecified; E87.1 Hypo-osmolality and hyponatremia; I50.9 Heart failure, unspecified; E78.00 Pure hypercholesterolemia, unspecified; J44.9 Chronic obstructive pulmonary disease, unspecified; Z91.041 Radiographic dye allergy status
CPT/HCPCS: 36415; 71045; 80053; 85007; 85025; 85610; 86885; 86900; 86901; 93005; 99285; J7030

== ENCOUNTER 2022-06-22 09:14 | Emergency (ER) | payer MEDICARE, MEDICAID ==
[~2022-06-22] VITALS: Ht 177.8 cm; Wt 79.5 kg
[2022-06-22] MEDS ORDERED: acetaminophen 325mg tablet PO ONE ×2 (09:45→09:55)
--- NOTE | 2022-06-22 10:36 | NUR ---
REPORTED PT BP 84/37 TO PROVIDER REJI NOLASCO. RECEIVED VO FOR IV FLUID BOLUS OF NS 1 LITER X 1 NOW.
[2022-06-22] MEDS ORDERED: normal saline 1000ml 1,000 ML IV ONE (10:40)
--- NOTE | 2022-06-22 10:52 | NUR ---
PT BOLUS ALMOST COMPLETE AND WITH BP 89/36. VS REPORTED TO PROVIDER Maikel LAIRD AND RECEIVED VO TO ADMINISTER 1 LITER LR IV X 1
[2022-06-22] MEDS ORDERED: ringers solution, lacted 1,000 ML IV ONE (11:00)
[2022-06-22 11:06] LABS: BASOPHILS # (AUTO) 0.1 X10'3 (0-0.2); EOSINOPHILS # (AUTO) 0.1 X10'3 (0-0.9); EOSINOPHILS % (AUTO) 1.5 % (0-6); HEMATOCRIT 22.6 % (42.0-52.0); HEMOGLOBIN 7.5 g/dl (14.0-17.9); LYMPHOCYTES # (AUTO) 0.8 X10'3 (1.1-4.8); LYMPHOCYTES % (AUTO) 9.2 % (21-51); MEAN CORPUSCULAR HEMOGLOBIN 26.3 PG (27.0-31.0); MEAN CORPUSCULAR HGB CONC 33.2 g/dL (33.0-36.5); MEAN CORPUSCULAR VOLUME 79.2 FL (78-98); MEAN PLATELET VOLUME 6.8 FL (7.4-10.4); MONOCYTES # (AUTO) 0.8 X10'3 (0-0.9); MONOCYTES % (AUTO) 9.5 % (2-12); NEUTROPHILS # (AUTO) 6.8 X10'3 (1.8-7.7); NEUTROPHILS % (AUTO) 78.8 % (42-75); PLATELET COUNT 459 X10'3 (140-440); RED BLOOD COUNT 2.85 X10'6 (4.70-6.10); RED CELL DISTRIBUTION WIDTH 18.5 % (11.5-14.5); WHITE BLOOD COUNT 8.7 X10'3 (4.5-11.0)
[2022-06-22 11:22] LABS: ALANINE AMINOTRANSFERASE 24 U/L (12-78); ALBUMIN 1.7 G/DL (3.4-5.0); ALBUMIN/GLOBULIN RATIO 0.3 (1.1-1.5); ALKALINE PHOSPHATASE 114 IU/L (46-116); ANION GAP 7 (8-16); ASPARTATE AMINO TRANSFERASE 26 U/L (10-37); BILIRUBIN,TOTAL 0.6 MG/DL (0.1-1.0); BLOOD UREA NITROGEN 30 MG/DL (7-18); CALCIUM 9.3 MG/DL (8.5-10.1); CHLORIDE 94 MMOL/L (99-107); CREATININE 1.43 MG/DL (0.60-1.10); GLUCOSE 148 MG/DL (70-104); POTASSIUM 4.3 MMOL/L (3.5-5.1); SODIUM 128 MMOL/L (135-145); TOTAL CARBON DIOXIDE 27.1 MMOL/L (24-32); TOTAL PROTEIN 7.6 G/DL (6.4-8.2); eGFR 48 ML/MIN
[2022-06-22] MEDS ORDERED: ipratropium/albuterol 3ml nebule NEB ONE (12:00)
[2022-06-22 14:03] LABS: D-DIMER 4.28 MG/L FEU (0-0.50)
[2022-06-22 15:15] VITALS: BP 109/47
[2022-06-22] MEDS ORDERED: iohexol 350MG/ML 100ml bottle IV ONE (15:16)
[2022-06-22] MEDS ORDERED: LEVO-65 PO (16:32)
== END 2022-06-22 17:35 | disposition home or self-care (01) ==
LOC: ER 09:14
DX: J44.1 Chronic obstructive pulmonary disease with (acute) exacerbation (principal); D64.9 Anemia, unspecified; E87.1 Hypo-osmolality and hyponatremia; R09.02 Hypoxemia; R79.1 Abnormal coagulation profile; I11.0 Hypertensive heart disease with heart failure; I50.9 Heart failure, unspecified; E78.00 Pure hypercholesterolemia, unspecified; E11.9 Type 2 diabetes mellitus without complications; F12.90 Cannabis use, unspecified, uncomplicated; Z91.041 Radiographic dye allergy status
CPT/HCPCS: 36415; 71045; 71275; 80053; 83605; 83880; 84145; 85025; 85379; 87040; 87502; 87503; 87635; 94640; 94760; C9803; J3490; J7030; J7120; Q9967

== ENCOUNTER 2023-04-11 14:31 | Emergency (ER) | payer MEDICARE, MEDICAID ==
[~2023-04-11] VITALS: Ht 177.8 cm; Wt 77.3 kg
[~2023-04-11 14:31] MED LIST changes: -AMIO200T61 PO; -CARV3.122 PO; +CARV6.253 PO; -DOCO1CAP11 PO; +DULO30CA52 PO; -EMPA10TA PO; -FURO-150 PO; +FURO40TA4 PO; -IPRA3AMP31 NEB; -LAN0.125T PO; +METF-436 PO; -MULT-1085 PO; -NICO-687 TOP; +PANT-47 PO; +POTA-206 PO; -POTA10TA PO; -RIVA20TA PO
[2023-04-11 15:45] LABS: BASOPHILS # (AUTO) 0.1 X10'3 (0-0.2); BASOPHILS % (AUTO) 1.1 % (0-1); EOSINOPHILS # (AUTO) 0.2 X10'3 (0-0.9); EOSINOPHILS % (AUTO) 3.2 % (0-6); HEMATOCRIT 26.8 % (42.0-52.0); HEMOGLOBIN 8.4 g/dl (14.0-17.9); LYMPHOCYTES # (AUTO) 1.6 X10'3 (1.1-4.8); LYMPHOCYTES % (AUTO) 25.8 % (21-51); MEAN CORPUSCULAR HEMOGLOBIN 26.6 PG (27.0-31.0); MEAN CORPUSCULAR HGB CONC 31.4 g/dL (33.0-36.5); MEAN CORPUSCULAR VOLUME 84.5 FL (78-98); MONOCYTES # (AUTO) 0.5 X10'3 (0-0.9); MONOCYTES % (AUTO) 8.9 % (2-12); NEUTROPHILS # (AUTO) 3.7 X10'3 (1.8-7.7); PLATELET COUNT 428 X10'3 (140-440); RED BLOOD COUNT 3.18 X10'6 (4.70-6.10); RED CELL DISTRIBUTION WIDTH 19.7 % (11.5-14.5)
[2023-04-11 15:56] LABS: APTT 30 SECONDS (22-32); PROTHROMBIN TIME 10.8 SECONDS (9.0-12.0)
[2023-04-11 16:06] LABS: ALANINE AMINOTRANSFERASE 12 U/L (12-78); ALBUMIN/GLOBULIN RATIO 0.3 (1.1-1.5); ALKALINE PHOSPHATASE 110 IU/L (46-116); ANION GAP 4 (8-16); ANISOCYTOSIS 2+; ASPARTATE AMINO TRANSFERASE 8 U/L (10-37); BILIRUBIN,TOTAL 0.3 MG/DL (0.1-1.0); BLOOD UREA NITROGEN 23 MG/DL (7-18); BUN/CREATININE RATIO 19.8 (10.0-20.0); CALCIUM 9.4 MG/DL (8.5-10.1); CHLORIDE 100 MMOL/L (99-107); CREATININE 1.16 MG/DL (0.60-1.10); GLUCOSE 138 MG/DL (70-104); PLATELET ESTIMATE NORMAL; POTASSIUM 4.4 MMOL/L (3.5-5.1); SODIUM 137 MMOL/L (135-145); TOTAL CARBON DIOXIDE 33.3 MMOL/L (24-32); TOTAL PROTEIN 8.1 G/DL (6.4-8.2); eCRCL 52 ML/MIN; eGFR 61 ML/MIN
[2023-04-11 16:07] LABS: ACANTHOCYTES 1+; ELLIPTOCYTES FEW; POIKILOCYTOSIS 1+; POLYCHROMASIA FEW; ROULEAUX 1+
--- NOTE | 2023-04-11 18:27 | NUR ---
ATTEMPTED TO CALL PATIENTS [facility] AT
--- NOTE | 2023-04-11 18:59 | NUR ---
[facility] CALLED FOR PATIENT.
[2023-04-11 19:00] VITALS: BP 103/54; PULSE 79; RESP 17; TEMP 99.1; O2SAT 96
--- NOTE | 2023-04-11 22:58 | NUR ---
I have reviewed and agree with all interventions, assessments performed and documented by Cora ELDER.
== END 2023-04-11 19:02 | disposition home or self-care (01) ==
LOC: ER 14:32
DX: D64.9 Anemia, unspecified (principal); I11.0 Hypertensive heart disease with heart failure; E78.00 Pure hypercholesterolemia, unspecified; J44.9 Chronic obstructive pulmonary disease, unspecified; E11.9 Type 2 diabetes mellitus without complications; Z79.899 Other long term (current) drug therapy
CPT/HCPCS: 36415; 80053; 85008; 85025; 85610; 85730; 86885; 86900; 86901; 99283

== ENCOUNTER 2023-11-15 23:51 | Emergency (ER) | payer MEDICARE, MEDICAID ==
[~2023-11-15] VITALS: Ht 177.8 cm; Wt 76.3 kg
[2023-11-16 00:45] LABS: BASOPHILS # (AUTO) 0.1 X10'3 (0-0.2); EOSINOPHILS # (AUTO) 0.3 X10'3 (0-0.9); EOSINOPHILS % (AUTO) 4.2 % (0-6); HEMATOCRIT 23.7 % (42.0-52.0); HEMOGLOBIN 7.3 g/dl (14.0-17.9); LYMPHOCYTES # (AUTO) 2.1 X10'3 (1.1-4.8); LYMPHOCYTES % (AUTO) 25.9 % (21-51); MEAN CORPUSCULAR HEMOGLOBIN 23.7 PG (27.0-31.0); MEAN CORPUSCULAR HGB CONC 30.7 g/dL (33.0-36.5); MEAN CORPUSCULAR VOLUME 77.3 FL (78-98); MEAN PLATELET VOLUME 7.2 FL (7.4-10.4); MONOCYTES # (AUTO) 0.7 X10'3 (0-0.9); MONOCYTES % (AUTO) 9.2 % (2-12); NEUTROPHILS # (AUTO) 4.8 X10'3 (1.8-7.7); NEUTROPHILS % (AUTO) 59.7 % (42-75); PLATELET COUNT 359 X10'3 (140-440); RED BLOOD COUNT 3.06 X10'6 (4.70-6.10); RED CELL DISTRIBUTION WIDTH 18.8 % (11.5-14.5)
[2023-11-16 00:50] LABS: ALBUMIN 2.2 G/DL (3.4-5.0); ANION GAP 3 (8-16); BLOOD UREA NITROGEN 23 MG/DL (7-18); BUN/CREATININE RATIO 19.3 (10.0-20.0); CALCIUM 9.4 MG/DL (8.5-10.1); CHLORIDE 101 MMOL/L (99-107); CREATININE 1.19 MG/DL (0.60-1.10); GLUCOSE 141 MG/DL (70-104); PRO BRAIN NATRIURETIC PEPTIDE 1464 PG/ML (0-450); SODIUM 138 MMOL/L (135-145); TOTAL CARBON DIOXIDE 33.9 MMOL/L (24-32); eCRCL 50 ML/MIN; eGFR 59 ML/MIN
[2023-11-16 01:02] LABS: POTASSIUM 4.9 MMOL/L (3.5-5.1)
[2023-11-16 01:07] LABS: TOTAL CELLS COUNTED 100
[2023-11-16 01:08] LABS: ANISOCYTOSIS 2+; MICROCYTOSIS 1+; PLATELET ESTIMATE NORMAL
[2023-11-16] MEDS: triamcinolone acetonide 40mg/ml inj IM ONE (01:15)
[2023-11-16] MEDS: methylPREDNISolone sod succ 125mg/2ml vial IV ONE (01:15)
[2023-11-16 01:20] LABS: ELLIPTOCYTES FEW; HYPOCHROMASIA 1+; POIKILOCYTOSIS FEW
[2023-11-16 01:21] LABS: SCHISTOCYTES FEW
[2023-11-16] MEDS ORDERED: ALBU18HF2 INH (01:41)
[2023-11-16] MEDS: ipratropium/albuterol 3ml nebule NEB ONE (02:32)
[2023-11-16 02:33] VITALS: PULSE 89; RESP 20; O2SAT 98
[2023-11-16 02:34] VITALS: BP 140/75; TEMP 98.9
[2023-11-16 02:43] VITALS: PULSE 83; RESP 20; O2SAT 97
== END 2023-11-16 03:01 | disposition home or self-care (01) ==
LOC: ER 23:52
DX: J44.1 Chronic obstructive pulmonary disease with (acute) exacerbation (principal); I11.0 Hypertensive heart disease with heart failure; I50.9 Heart failure, unspecified; E78.00 Pure hypercholesterolemia, unspecified; E11.9 Type 2 diabetes mellitus without complications; F12.90 Cannabis use, unspecified, uncomplicated; Z91.041 Radiographic dye allergy status; Z79.899 Other long term (current) drug therapy
CPT/HCPCS: 36415; 71045; 80048; 83880; 84145; 84484; 85007; 85025; 93005; 94640; 96372; 96374; 99285; J2919; J3301; Z7610; 94760

== ENCOUNTER 2023-12-31 11:57 | Emergency (ER) | payer MEDICARE, MEDICAID ==
[~2023-12-31] VITALS: Ht 177.8 cm; Wt 81.3 kg
[~2023-12-31 11:57] MED LIST changes: -ALBU18HF2 IH; +ALBU18HF2 INH; +CARV-50 PO; -CARV6.253 PO; +DULO-31 PO; -DULO30CA52 PO; -FURO40TA4 PO; +LISI20TA28 PO; -LISI5TAB22 PO; +METF-1203 PO; -METF-436 PO; -PANT-47 PO; -POTA-206 PO; +PRED20TA PO
[2023-12-31 12:00] VITALS: BP 150/128; TEMP 98.3
[2023-12-31] MEDS: bisacodyl 10mg suppository rectal RC STA (12:50)
[2023-12-31] MEDS: polyethylene glycol 3350 17gm powd pack PO ONE (12:51)
[2023-12-31] MEDS: methylnaltrexone br 12mg/0.6ml inj***SubQ only SQ ONE (12:51)
[2023-12-31] MEDS: magnesium citrate 296ml oral solution PO ONE (12:53)
[2023-12-31] MEDS: lactulose 20gm/30ml cup PO ONE (13:28)
[2023-12-31] MEDS ORDERED: BISA10SU60 RC (14:31)
[2023-12-31] MEDS: LidoCAINE 2% Topical Jelly 11mL syringe (UROJET) TOP ONE (14:57)
[2023-12-31] MEDS: ipratropium/albuterol 3ml nebule NEB ONE (15:03)
[2023-12-31 15:04] VITALS: PULSE 112; RESP 20; O2SAT 90
[2023-12-31 15:10] VITALS: PULSE 55; RESP 18; O2SAT 99
== END 2023-12-31 16:15 | disposition home or self-care (01) ==
LOC: ER 11:57
DX: K56.41 Fecal impaction (principal); J44.9 Chronic obstructive pulmonary disease, unspecified; I48.91 Unspecified atrial fibrillation; I11.0 Hypertensive heart disease with heart failure; I50.9 Heart failure, unspecified; E78.00 Pure hypercholesterolemia, unspecified; D64.9 Anemia, unspecified; E11.9 Type 2 diabetes mellitus without complications; F12.90 Cannabis use, unspecified, uncomplicated; Z88.1 Allergy status to other antibiotic agents; Z79.899 Other long term (current) drug therapy; Z79.52 Long term (current) use of systemic steroids
CPT/HCPCS: 94640; 96372; 99284; J2212; Z7610; 94760

== ENCOUNTER 2024-01-01 15:17 | Emergency (ER) | payer MEDICARE, MEDICAID ==
[~2024-01-01] VITALS: Ht 177.8 cm; Wt 75.0 kg
[~2024-01-01 15:17] MED LIST changes: +BISA10SU60 RC
[2024-01-01] MEDS: normal saline 1000ml 1,000 ML IV ONE (15:39)
[2024-01-01] MEDS: normal saline 1000ML IV soln IVB ONE (16:20)
[2024-01-01 16:46] VITALS: TEMP 97.9
[2024-01-01 19:45] VITALS: BP 108/56; PULSE 98; O2SAT 98
[2024-01-01 19:56] VITALS: RESP 18
== END 2024-01-01 22:56 | disposition home or self-care (01) ==
LOC: ER 15:18
DX: I95.9 Hypotension, unspecified (principal); F12.90 Cannabis use, unspecified, uncomplicated; I48.91 Unspecified atrial fibrillation; I11.0 Hypertensive heart disease with heart failure; I50.9 Heart failure, unspecified; E78.00 Pure hypercholesterolemia, unspecified; J44.9 Chronic obstructive pulmonary disease, unspecified; D64.9 Anemia, unspecified; E11.9 Type 2 diabetes mellitus without complications; Z88.1 Allergy status to other antibiotic agents; Z79.899 Other long term (current) drug therapy; Z79.52 Long term (current) use of systemic steroids
CPT/HCPCS: 96360; 96361; 99285; J7030

== ENCOUNTER 2024-01-03 23:28 | Inpatient (IN) | payer MEDICARE, MEDICAID ==
[~2024-01-03] VITALS: Ht 177.8 cm; Wt 78.0 kg
[2024-01-03] MEDS: ipratropium/albuterol 3ml nebule NEB ONE (23:41)
[2024-01-03 23:44] VITALS: PULSE 89; RESP 21; O2SAT 97
[2024-01-03 23:47] VITALS: PULSE 86; RESP 22; O2SAT 96
[2024-01-03 23:53] LABS: BASOPHILS # (AUTO) 0.1 X10'3 (0-0.2); BASOPHILS % (AUTO) 0.6 % (0-1); EOSINOPHILS # (AUTO) 0.2 X10'3 (0-0.9); EOSINOPHILS % (AUTO) 1.9 % (0-6); HEMATOCRIT 29.2 % (42.0-52.0); HEMOGLOBIN 8.8 g/dl (14.0-17.9); LYMPHOCYTES # (AUTO) 1.4 X10'3 (1.1-4.8); LYMPHOCYTES % (AUTO) 15.8 % (21-51); MEAN CORPUSCULAR HGB CONC 30.2 g/dL (33.0-36.5); MEAN CORPUSCULAR VOLUME 82.7 FL (78-98); MEAN PLATELET VOLUME 6.9 FL (7.4-10.4); MONOCYTES # (AUTO) 0.7 X10'3 (0-0.9); MONOCYTES % (AUTO) 8.6 % (2-12); NEUTROPHILS # (AUTO) 6.4 X10'3 (1.8-7.7); NEUTROPHILS % (AUTO) 73.1 % (42-75); PLATELET COUNT 301 X10'3 (140-440); RED BLOOD COUNT 3.53 X10'6 (4.70-6.10); RED CELL DISTRIBUTION WIDTH 20.1 % (11.5-14.5); WHITE BLOOD COUNT 8.7 X10'3 (4.5-11.0)
[2024-01-03] MEDS: methylPREDNISolone sod succ 125mg/2ml vial IV ONE (23:59)
[2024-01-04] VITALS (18 sets, daily range): BP systolic 92–130; BP diastolic 42–75; PULSE 64–101; RESP 14–25; TEMP 97.3–98.6; O2SAT 92–98
[2024-01-04 00:02] LABS: APTT 29 SECONDS (22-32); PROTHROMBIN TIME 10.3 SECONDS (9.0-12.0)
[2024-01-04 00:10] LABS: ABG BASE EXCESS 3.7 mmol/L (-2.0-2.0); ABG HCO3 29.4 mmol/L (22.0-26.0); ABG OXYGEN SATURATION 97.8 % (94-97); ABG PCO2 (T) 48.3 mmHg (35.0-48.0); ABG PH (T) 7.399 (7.340-7.440); ABG PO2 (T) 91.7 mmHg (75.0-100.0); ALLEN'S TEST Modified; FCOHb 1.3 % (0.0-3.9); FHHb 2.2 % (0.0-5.0); FLOW 3 L/min; FMetHb 0.3 % (0.0-1.5); FO2Hb 96.2 % (94-97); MODE NASAL CANNULA; PATIENT TEMPERATURE 36.4; TOTAL HEMOGLOBIN 9.7 G/dl (14.0-17.9)
[2024-01-04 00:11] LABS: ALANINE AMINOTRANSFERASE 18 U/L (12-78); ALBUMIN 2.4 G/DL (3.4-5.0); ALBUMIN/GLOBULIN RATIO 0.5 (1.1-1.5); ALKALINE PHOSPHATASE 96 IU/L (46-116); ANION GAP 3 (8-16); ASPARTATE AMINO TRANSFERASE 11 U/L (10-37); BILIRUBIN,TOTAL 0.6 MG/DL (0.1-1.0); BLOOD UREA NITROGEN 30 MG/DL (7-18); BUN/CREATININE RATIO 29.7 (10.0-20.0); CALCIUM 9.1 MG/DL (8.5-10.1); CHLORIDE 100 MMOL/L (99-107); CREATININE 1.01 MG/DL (0.60-1.10); GLUCOSE 97 MG/DL (70-104); MAGNESIUM 2.3 MG/DL (1.5-2.4); PRO BRAIN NATRIURETIC PEPTIDE 2474 PG/ML (0-450); SODIUM 134 MMOL/L (135-145); TOTAL CARBON DIOXIDE 31.3 MMOL/L (24-32); TOTAL PROTEIN 7.3 G/DL (6.4-8.2); eCRCL 59 ML/MIN; eGFR 71 ML/MIN
[2024-01-04 00:18] LABS: POTASSIUM 6.1 MMOL/L (3.5-5.1)
[2024-01-04 00:53] LABS: ANISOCYTOSIS 3+; ELLIPTOCYTES 1+; HYPOCHROMASIA 1+; PLATELET ESTIMATE NORMAL; POLYCHROMASIA 1+
[2024-01-04] MEDS: normal saline 1000ML IV soln IVB ONE (01:42)
[2024-01-04] MEDS ORDERED: ALBU18HF2 INH (01:47)
[2024-01-04] MEDS ORDERED: acetaminophen 325mg tablet PO PRN (03:30)
[2024-01-04] MEDS ORDERED: magnesium sulf-water 4G/100mL 100 ML IV PRN (03:30)
[2024-01-04] MEDS ORDERED: potassium Cl 20 mEq SR tablet PO PRN ×2 (03:30)
[2024-01-04] MEDS ORDERED: magnesium hydroxide 30ml (MOM) UD suspension PO PRN (03:30)
[2024-01-04] MEDS ORDERED: potassium Cl 40MEQ/1/2NS 520ml 520 ML IV PRN (03:30)
[2024-01-04] MEDS ORDERED: ondansetron/PF 4mg/2ml inj IV PRN (03:30)
[2024-01-04] MEDS ORDERED: magnesium Cl slow-release 64mg tablet PO PRN (03:30)
[2024-01-04] MEDS ORDERED: HYDROcodone/acetaminophen 5mg/325mg tablet PO PRN (03:30)
[2024-01-04] MEDS ORDERED: mag hydrox/Alum hydrox/simeth 30ml oral suspension PO PRN (03:30)
[2024-01-04] MEDS: calcium chloride 100 MG/1 ML inj IV ONE (04:55)
[2024-01-04] MEDS: sodium bicarbonate (8.4%) 1 mEq/ml syringe IV ONE (04:55)
[2024-01-04] MEDS: sodium polystyrene sulfonate 15gm/60ml oral suspension PO ONE (04:56)
[2024-01-04] MEDS: furosemide 10 MG/1 ML 10ml inj IV ONE (04:57)
[2024-01-04] MEDS ORDERED: heparin 10,000 units/1 ML INJ IV SCH (05:00)
[2024-01-04] MEDS ORDERED: aspirin 325mg tablet, delayed-release (Ecotrin) PO ONE (05:00)
[2024-01-04] MEDS ORDERED: metoprolol tartrate 50mg tablet PO SCH (05:00)
[2024-01-04] MEDS ORDERED: morphine 4 MG/ML inj SYRINge IV PRN (05:00)
[2024-01-04] MEDS: metoprolol tartrate 50mg tablet PO ONE (05:10)
[2024-01-04] MEDS: metoprolol tartrate 1mg/ml inj IV SCH (05:25)
[2024-01-04] MEDS: docusate sod 100mg capsule PO SCH (07:52)
[2024-01-04] MEDS: pantoprazole 40mg Tablet.DR PO SCH (07:52)
[2024-01-04] MEDS: guaiFENesin ER 600mg tablet PO SCH (07:52)
[2024-01-04] MEDS: ipratropium/albuterol 3ml nebule NEB SCH (07:52)
[2024-01-04] MEDS: SODIUM ZIRCONIUM CYCLOSILICATE 10 GM POWD.PACK PO SCH (07:53)
[2024-01-04] MEDS ORDERED: albuterol 2.5 MG/3 ML nebule NEB PRN (08:30)
[2024-01-04] MEDS: atorvastatin 20mg tablet PO SCH (08:38)
[2024-01-04] MEDS: duloxetine 30mg CAPSULE.DR PO SCH (08:38)
[2024-01-04] MEDS: prednisone 10mg tablet PO SCH (08:39)
[2024-01-04] MEDS: furosemide 20 MG/2 ML vial IV SCH (08:39)
[2024-01-04] MEDS: methylPREDNISolone sod succ/PF 40mg inj. IV SCH (08:39)
[2024-01-04] MEDS: carvedilol 6.25mg tablet PO SCH (08:39)
[2024-01-04] MEDS: heparin, porcine 5000 units/ml vial SQ SCH (19:52)
[2024-01-05] VITALS (13 sets, daily range): BP systolic 104–113; BP diastolic 55–67; PULSE 70–98; RESP 15–20; TEMP 98.2–98.4; O2SAT 94–100
[2024-01-05 06:57] LABS: BASOPHILS # (AUTO) 0.1 X10'3 (0-0.2); BASOPHILS % (AUTO) 0.7 % (0-1); EOSINOPHILS % (AUTO) 0.1 % (0-6); HEMATOCRIT 26.6 % (42.0-52.0); HEMOGLOBIN 8.1 g/dl (14.0-17.9); MEAN CORPUSCULAR HEMOGLOBIN 24.9 PG (27.0-31.0); MEAN CORPUSCULAR HGB CONC 30.5 g/dL (33.0-36.5); MEAN CORPUSCULAR VOLUME 81.5 FL (78-98); MEAN PLATELET VOLUME 7.7 FL (7.4-10.4); MONOCYTES # (AUTO) 0.9 X10'3 (0-0.9); NEUTROPHILS # (AUTO) 7.8 X10'3 (1.8-7.7); NEUTROPHILS % (AUTO) 72.2 % (42-75); PLATELET COUNT 287 X10'3 (140-440); RED BLOOD COUNT 3.26 X10'6 (4.70-6.10); RED CELL DISTRIBUTION WIDTH 20.6 % (11.5-14.5); WHITE BLOOD COUNT 10.8 X10'3 (4.5-11.0)
[2024-01-05 07:05] LABS: HEMOGLOBIN A1C 6.3 % (4.5-6.2)
[2024-01-05 07:23] LABS: ALANINE AMINOTRANSFERASE 16 U/L (12-78); ALBUMIN 2.3 G/DL (3.4-5.0); ALBUMIN/GLOBULIN RATIO 0.5 (1.1-1.5); ALKALINE PHOSPHATASE 80 IU/L (46-116); ANION GAP 2 (8-16); ASPARTATE AMINO TRANSFERASE 9 U/L (10-37); BILIRUBIN,TOTAL 0.3 MG/DL (0.1-1.0); BLOOD UREA NITROGEN 38 MG/DL (7-18); BUN/CREATININE RATIO 37.6 (10.0-20.0); CHLORIDE 99 MMOL/L (99-107); CREATININE 1.01 MG/DL (0.60-1.10); GLUCOSE 123 MG/DL (70-104); POTASSIUM 3.6 MMOL/L (3.5-5.1); SODIUM 135 MMOL/L (135-145); TOTAL CARBON DIOXIDE 34.2 MMOL/L (24-32); TOTAL PROTEIN 6.8 G/DL (6.4-8.2); eCRCL 59 ML/MIN; eGFR 71 ML/MIN
[2024-01-05 07:50] LABS: ANISOCYTOSIS 3+; ELLIPTOCYTES 1+; MICROCYTOSIS 1+; PLATELET ESTIMATE NORMAL; POIKILOCYTOSIS FEW; POLYCHROMASIA FEW
[2024-01-05] MEDS ORDERED: FURO20TA4 PO (11:31)
[2024-01-05] MEDS ORDERED: TIOT4MIS2 INH (11:31)
[2024-01-05] MEDS ORDERED: BUDE0.5A11 NEB (11:31)
[2024-01-05] MEDS ORDERED: POTA-207 PO (11:31)
== END 2024-01-05 16:21 | disposition home or self-care (01) | DRG 291 ==
LOC: ER 23:29 → ED HOLD 01-04 03:40 → PCU 3S 01-04 05:44
PROVIDERS: ADMIT Internal Medicine Critical Care Medicine; ATTEND Family Medicine
DX: I11.0 Hypertensive heart disease with heart failure (principal); I50.33 Acute on chronic diastolic (congestive) heart failure; J96.00 Acute respiratory failure, unspecified whether with hypoxia or hypercapnia; J44.1 Chronic obstructive pulmonary disease with (acute) exacerbation; E78.00 Pure hypercholesterolemia, unspecified; I35.0 Nonrheumatic aortic (valve) stenosis; I48.0 Paroxysmal atrial fibrillation; E87.5 Hyperkalemia; E11.9 Type 2 diabetes mellitus without complications; D64.9 Anemia, unspecified; Z66 Do not resuscitate; I48.91 Unspecified atrial fibrillation; Z83.3 Family history of diabetes mellitus; Z87.891 Personal history of nicotine dependence; Z79.899 Other long term (current) drug therapy; Z88.1 Allergy status to other antibiotic agents
CPT/HCPCS: 36415; 36600; 71045; 80053; 82803; 83036; 83735; 83880; 84132; 84484; 85008; 85018; 85025; 85610; 85730; 87081; 93005; 94640; 94660; 94664; 94760; 96360; 96361; 96374; 97116; 97161; 97530; 99285; A4615; A6590; G0378; J1644; J1940; J2919; J3490; J7030; J7512

== ENCOUNTER 2024-02-21 08:15 | Emergency (ER) | payer MEDICARE, MEDICAID ==
[~2024-02-21] VITALS: Ht 177.8 cm; Wt 77.3 kg
[~2024-02-21 08:15] MED LIST changes: -BISA10SU60 RC; +BUDE0.5A11 NEB; +FURO20TA4 PO; -LISI20TA28 PO; +POTA-207 PO; +TIOT4MIS2 INH
[2024-02-21 08:40] LABS: BASOPHILS # (AUTO) 0.1 X10'3 (0-0.2); BASOPHILS % (AUTO) 0.4 % (0-1); EOSINOPHILS # (AUTO) 0.1 X10'3 (0-0.9); EOSINOPHILS % (AUTO) 0.3 % (0-6); HEMATOCRIT 32.3 % (42.0-52.0); HEMOGLOBIN 9.9 g/dl (14.0-17.9); LYMPHOCYTES # (AUTO) 2.7 X10'3 (1.1-4.8); LYMPHOCYTES % (AUTO) 14.6 % (21-51); MEAN CORPUSCULAR HEMOGLOBIN 26.9 PG (27.0-31.0); MEAN CORPUSCULAR HGB CONC 30.7 g/dL (33.0-36.5); MEAN CORPUSCULAR VOLUME 87.4 FL (78-98); MEAN PLATELET VOLUME 7.4 FL (7.4-10.4); MONOCYTES % (AUTO) 5.5 % (2-12); NEUTROPHILS # (AUTO) 14.9 X10'3 (1.8-7.7); NEUTROPHILS % (AUTO) 79.2 % (42-75); PLATELET COUNT 268 X10'3 (140-440); RED BLOOD COUNT 3.69 X10'6 (4.70-6.10); RED CELL DISTRIBUTION WIDTH 20.8 % (11.5-14.5); WHITE BLOOD COUNT 18.8 X10'3 (4.5-11.0)
[2024-02-21] MEDS: CefTRIAXone/D5W-Rocephin 1gm 50 ML IV ONE (09:00)
[2024-02-21 09:01] LABS: ALANINE AMINOTRANSFERASE 38 U/L (12-78); ALBUMIN 2.5 G/DL (3.4-5.0); ALBUMIN/GLOBULIN RATIO 0.7 (1.1-1.5); ALKALINE PHOSPHATASE 66 IU/L (46-116); ANION GAP 5 (8-16); ASPARTATE AMINO TRANSFERASE 34 U/L (10-37); BILIRUBIN,TOTAL 0.6 MG/DL (0.1-1.0); BLOOD UREA NITROGEN 27 MG/DL (7-18); BUN/CREATININE RATIO 33.3 (10.0-20.0); CALCIUM 8.7 MG/DL (8.5-10.1); CHLORIDE 101 MMOL/L (99-107); CREATININE 0.81 MG/DL (0.60-1.10); GLUCOSE 132 MG/DL (70-104); PRO BRAIN NATRIURETIC PEPTIDE 1411 PG/ML (0-450); SODIUM 135 MMOL/L (135-145); TOTAL CARBON DIOXIDE 28.8 MMOL/L (24-32); TOTAL PROTEIN 6.2 G/DL (6.4-8.2); eCRCL 74 ML/MIN; eGFR > 90 ML/MIN
[2024-02-21 09:04] LABS: POTASSIUM 4.7 MMOL/L (3.5-5.1)
[2024-02-21] MEDS: methylPREDNISolone sod succ 125mg/2ml vial IV ONE (09:18)
[2024-02-21] MEDS: ipratropium/albuterol 3ml nebule NEB STA (09:39)
[2024-02-21 09:40] VITALS: PULSE 110; RESP 18; O2SAT 97
[2024-02-21 09:45] VITALS: PULSE 109; RESP 18; O2SAT 98
[2024-02-21 09:54] LABS: PLATELET ESTIMATE NORMAL
[2024-02-21 09:55] LABS: ACANTHOCYTES 1+; ANISOCYTOSIS 3+; BURR CELLS 1+; ELLIPTOCYTES 1+; POLYCHROMASIA 1+; SCHISTOCYTES FEW
[2024-02-21 10:29] LABS: D-DIMER 0.68 MG/L FEU (0-0.50)
[2024-02-21] MEDS: magnesium sulf-water 2g/50mL 50 ML IV ONE (10:56)
[2024-02-21 11:02] VITALS: TEMP 98.4
[2024-02-21] MEDS ORDERED: CEFD300C3 PO (11:02)
[2024-02-21] MEDS ORDERED: SALM50DI2 INH (11:02)
[2024-02-21] MEDS: ipratropium/albuterol 3ml nebule NEB ONE (11:35)
[2024-02-21 12:05] VITALS: BP 104/57; PULSE 105; RESP 22; O2SAT 96
== END 2024-02-21 12:08 | disposition home or self-care (01) ==
LOC: ER 08:15
DX: J44.9 Chronic obstructive pulmonary disease, unspecified (principal); I48.91 Unspecified atrial fibrillation; I11.0 Hypertensive heart disease with heart failure; I50.9 Heart failure, unspecified; E78.00 Pure hypercholesterolemia, unspecified; F17.200 Nicotine dependence, unspecified, uncomplicated; F12.90 Cannabis use, unspecified, uncomplicated; Z91.041 Radiographic dye allergy status; Z79.899 Other long term (current) drug therapy
CPT/HCPCS: 36415; 71045; 80053; 83605; 83880; 84145; 84484; 85008; 85025; 85379; 87040; 93005; 94640; 96365; 96366; 96368; 96375; 99285; J0696; J2919; 94760

== ENCOUNTER 2024-03-27 17:50 | Inpatient (IN) | payer MEDICARE, MEDICAID ==
[~2024-03-27] VITALS: Ht 177.8 cm; Wt 77.3 kg
[2024-03-27] MEDS: furosemide 10 MG/1 ML 10ml inj IV ONE ×2 (18:09→19:23)
[2024-03-27] MEDS: nitroGLYCERIN-Tridil 50MG/D5W 250 ML IV PRN (18:09)
[2024-03-27] MEDS: CefTRIAXone 2gm/D5W 50ml BAG 50 ML IV ONE (18:15)
[2024-03-27] MEDS: methylPREDNISolone sod succ/PF 40mg inj. IV SCH (18:16)
[2024-03-27 18:28] LABS: BASOPHILS # (AUTO) 0.1 X10'3 (0-0.2); BASOPHILS % (AUTO) 0.4 % (0-1); EOSINOPHILS # (AUTO) 0.2 X10'3 (0-0.9); EOSINOPHILS % (AUTO) 1.7 % (0-6); HEMATOCRIT 33.9 % (42.0-52.0); HEMOGLOBIN 10.6 g/dl (14.0-17.9); LYMPHOCYTES # (AUTO) 2.1 X10'3 (1.1-4.8); LYMPHOCYTES % (AUTO) 17.8 % (21-51); MEAN CORPUSCULAR HEMOGLOBIN 28.1 PG (27.0-31.0); MEAN CORPUSCULAR HGB CONC 31.4 g/dL (33.0-36.5); MEAN CORPUSCULAR VOLUME 89.4 FL (78-98); MEAN PLATELET VOLUME 8.2 FL (7.4-10.4); MONOCYTES # (AUTO) 1.2 X10'3 (0-0.9); MONOCYTES % (AUTO) 10.4 % (2-12); NEUTROPHILS # (AUTO) 8.2 X10'3 (1.8-7.7); NEUTROPHILS % (AUTO) 69.7 % (42-75); PLATELET COUNT 214 X10'3 (140-440); RED BLOOD COUNT 3.79 X10'6 (4.70-6.10); RED CELL DISTRIBUTION WIDTH 18.4 % (11.5-14.5); WHITE BLOOD COUNT 11.8 X10'3 (4.5-11.0)
[2024-03-27] MEDS: diltiazem 5mg/ml 5ml inj. IV ONE (18:36)
[2024-03-27] MEDS: magnesium sulf-water 2g/50mL 50 ML IV ONE (18:42)
[2024-03-27 18:43] LABS: PROTHROMBIN TIME 10.2 SECONDS (9.0-12.0)
[2024-03-27] MEDS ORDERED: CefTRIAXone 2gm/D5W 50ml BAG 50 ML IV ONE (18:50)
[2024-03-27 18:55] LABS: ALANINE AMINOTRANSFERASE 29 U/L (12-78); ALBUMIN 2.7 G/DL (3.4-5.0); ALBUMIN/GLOBULIN RATIO 0.7 (1.1-1.5); ALKALINE PHOSPHATASE 71 IU/L (46-116); ANION GAP 6 (8-16); ASPARTATE AMINO TRANSFERASE 17 U/L (10-37); BILIRUBIN,TOTAL 0.8 MG/DL (0.1-1.0); BLOOD UREA NITROGEN 28 MG/DL (7-18); BUN/CREATININE RATIO 26.2 (10.0-20.0); CALCIUM 9.2 MG/DL (8.5-10.1); CHLORIDE 99 MMOL/L (99-107); CREATININE 1.07 MG/DL (0.60-1.10); GLUCOSE 131 MG/DL (70-104); POTASSIUM 4.7 MMOL/L (3.5-5.1); SODIUM 136 MMOL/L (135-145); TOTAL CARBON DIOXIDE 30.6 MMOL/L (24-32); TOTAL PROTEIN 6.8 G/DL (6.4-8.2); eCRCL 56 ML/MIN; eGFR 66 ML/MIN
[2024-03-27 18:58] VITALS: PULSE 102; RESP 18; O2SAT 97
[2024-03-27 19:04] LABS: PRO BRAIN NATRIURETIC PEPTIDE 559 PG/ML (0-450)
[2024-03-27] MEDS ORDERED: magnesium sulf-water 2g/50mL 50 ML IV PRN (20:00)
[2024-03-27] MEDS ORDERED: potassium Cl 20 mEq SR tablet PO PRN ×2 (20:00)
[2024-03-27] MEDS: K and/or MAG REPLACEMENT MC SCH (20:00)
[2024-03-27] MEDS ORDERED: acetaminophen 325mg tablet PO PRN (20:00)
[2024-03-27] MEDS ORDERED: potassium Cl 40MEQ/1/2NS 520ml 520 ML IV PRN (20:00)
[2024-03-27] MEDS ORDERED: magnesium Cl slow-release 64mg tablet PO PRN (20:00)
[2024-03-27] MEDS ORDERED: magnesium sulf-water 4G/100mL 100 ML IV PRN (20:00)
[2024-03-27] MEDS: ipratropium/albuterol 3ml nebule NEB PRN (21:29)
[2024-03-27 21:33] VITALS: PULSE 120; RESP 18; O2SAT 95
[2024-03-27 21:38] VITALS: PULSE 123; RESP 18
[2024-03-27 21:49] LABS: BILIRUBIN,URINE NEGATIVE (Neg); CLARITY,URINE CLEAR (Clear); COLOR,URINE STRAW (Yellow); GLUCOSE, URINE NEGATIVE (Neg); KETONES,URINE NEGATIVE (Neg); LEUKOCYTE ESTERASE ,URINE NEGATIVE (Neg); NITRITES, URINE NEGATIVE (Neg); OCCULT BLOOD,URINE NEGATIVE (Neg); PH,URINE 5.5 (4.8-8.0); PROTEIN,URINE NEGATIVE (Neg); UROBILINOGEN,URINE 0.2 E.U/dL (0.2-1.0)
[2024-03-27 21:59] LABS: UA COLLECTION TYPE URINAL
[2024-03-27] MEDS: ipratropium/albuterol 3ml nebule NEB SCH (23:00)
[2024-03-28] VITALS (18 sets, daily range): BP systolic 114–130; BP diastolic 61–76; PULSE 70–100; RESP 18–26; TEMP 98.2–98.7; O2SAT 93–99
[2024-03-28] MEDS: methylPREDNISolone sod succ 125mg/2ml vial IV SCH (02:33)
[2024-03-28 07:01] LABS: BASOPHILS % (AUTO) 0.1 % (0-1); EOSINOPHILS % (AUTO) 0 % (0-6); HEMATOCRIT 33.8 % (42.0-52.0); HEMOGLOBIN 10.9 g/dl (14.0-17.9); LYMPHOCYTES # (AUTO) 0.5 X10'3 (1.1-4.8); LYMPHOCYTES % (AUTO) 5.9 % (21-51); MEAN CORPUSCULAR HEMOGLOBIN 28.4 PG (27.0-31.0); MEAN CORPUSCULAR HGB CONC 32.2 g/dL (33.0-36.5); MEAN CORPUSCULAR VOLUME 88.2 FL (78-98); MEAN PLATELET VOLUME 8.4 FL (7.4-10.4); MONOCYTES # (AUTO) 0.2 X10'3 (0-0.9); MONOCYTES % (AUTO) 1.7 % (2-12); NEUTROPHILS # (AUTO) 8.5 X10'3 (1.8-7.7); NEUTROPHILS % (AUTO) 92.3 % (42-75); PLATELET COUNT 208 X10'3 (140-440); RED BLOOD COUNT 3.83 X10'6 (4.70-6.10); RED CELL DISTRIBUTION WIDTH 18.1 % (11.5-14.5); WHITE BLOOD COUNT 9.2 X10'3 (4.5-11.0)
[2024-03-28 07:23] LABS: ALBUMIN 2.7 G/DL (3.4-5.0); ANION GAP 7 (8-16); BLOOD UREA NITROGEN 32 MG/DL (7-18); BUN/CREATININE RATIO 25.6 (10.0-20.0); CALCIUM 9.2 MG/DL (8.5-10.1); CHLORIDE 97 MMOL/L (99-107); CREATININE 1.25 MG/DL (0.60-1.10); GLUCOSE 233 MG/DL (70-104); POTASSIUM 4.6 MMOL/L (3.5-5.1); SODIUM 133 MMOL/L (135-145); TOTAL CARBON DIOXIDE 29.3 MMOL/L (24-32); eCRCL 48 ML/MIN; eGFR 55 ML/MIN
[2024-03-28] MEDS: furosemide 40mg/4ml inj IV SCH (08:16)
[2024-03-28] MEDS: atorvastatin 10mg tablet PO SCH (08:23)
[2024-03-28] MEDS: carVEDilol 3.125mg tablet PO SCH (08:25)
[2024-03-28] MEDS: CefTRIAXone/D5W-Rocephin 1gm 50 ML IV SCH (08:26)
[2024-03-28] MEDS: azithromycin/NS 500mg/250ml 250 ML IV SCH (08:29)
[2024-03-28] MEDS: ondansetron/PF 4mg/2ml inj IV PRN (09:25)
[2024-03-28] MEDS: ondansetron/PF 4mg/2ml inj IV ONE (12:46)
[2024-03-28] MEDS ORDERED: nitroGLYCERIN-Tridil 50MG/D5W 250 ML IV PRN (19:25)
[2024-03-29] VITALS (21 sets, daily range): BP systolic 109–146; BP diastolic 56–82; PULSE 62–108; RESP 16–28; TEMP 96.8–98.7; O2SAT 92–99
[2024-03-29 06:13] LABS: ALBUMIN 2.4 G/DL (3.4-5.0); ANION GAP 9 (8-16); BLOOD UREA NITROGEN 49 MG/DL (7-18); CALCIUM 8.9 MG/DL (8.5-10.1); CHLORIDE 95 MMOL/L (99-107); GLUCOSE 300 MG/DL (70-104); POTASSIUM 4.6 MMOL/L (3.5-5.1); SODIUM 132 MMOL/L (135-145); TOTAL CARBON DIOXIDE 27.8 MMOL/L (24-32); eCRCL 43 ML/MIN; eGFR 49 ML/MIN
[2024-03-29 06:18] LABS: BASOPHILS % (AUTO) 0 % (0-1); EOSINOPHILS % (AUTO) 0 % (0-6); HEMATOCRIT 28.8 % (42.0-52.0); HEMOGLOBIN 9.1 g/dl (14.0-17.9); LYMPHOCYTES # (AUTO) 0.5 X10'3 (1.1-4.8); LYMPHOCYTES % (AUTO) 3.3 % (21-51); MEAN CORPUSCULAR HEMOGLOBIN 28.3 PG (27.0-31.0); MEAN CORPUSCULAR HGB CONC 31.6 g/dL (33.0-36.5); MEAN CORPUSCULAR VOLUME 89.3 FL (78-98); MEAN PLATELET VOLUME 8.8 FL (7.4-10.4); MONOCYTES # (AUTO) 0.5 X10'3 (0-0.9); MONOCYTES % (AUTO) 3.5 % (2-12); NEUTROPHILS # (AUTO) 14.4 X10'3 (1.8-7.7); NEUTROPHILS % (AUTO) 93.2 % (42-75); PLATELET COUNT 190 X10'3 (140-440); RED BLOOD COUNT 3.23 X10'6 (4.70-6.10); RED CELL DISTRIBUTION WIDTH 17.4 % (11.5-14.5); WHITE BLOOD COUNT 15.4 X10'3 (4.5-11.0)
[2024-03-29 08:24] LABS: ANISOCYTOSIS 3+; HYPOCHROMASIA 2+; MICROCYTOSIS 2+; POLYCHROMASIA 2+
[2024-03-29 08:25] LABS: ELLIPTOCYTES FEW; SPHEROCYTES FEW
[2024-03-29] MEDS ORDERED: dextrose 50%-water 50ml dispensing syringe IV PRN ×2 (09:30)
[2024-03-29] MEDS ORDERED: glucagon, human recombinant 1mg kit SUBCUT PRN (09:30)
[2024-03-29] MEDS ORDERED: DEXTROSE 15 GM of carb/4 tabs (each vial/BOTTLE has 4 tablets) PO PRN ×2 (09:30)
[2024-03-29] MEDS: INSULIN LISPRO 100 UNIT/ML INSULN.PEN MULTI-DOSE SQ SCH (12:21)
[2024-03-29] MEDS: magnesium citrate 296ml oral solution PO ONE (14:15)
[2024-03-29] MEDS: insulin glargine (Lantus) pen - multi-dose SQ SCH (20:28)
[2024-03-30] VITALS (19 sets, daily range): BP systolic 113–127; BP diastolic 56–72; PULSE 70–112; RESP 16–25; TEMP 96.1–98.1; O2SAT 90–98
[2024-03-30 06:23] LABS: BASOPHILS % (AUTO) 0 % (0-1); EOSINOPHILS % (AUTO) 0 % (0-6); HEMATOCRIT 29.6 % (42.0-52.0); HEMOGLOBIN 9.5 g/dl (14.0-17.9); LYMPHOCYTES # (AUTO) 0.4 X10'3 (1.1-4.8); LYMPHOCYTES % (AUTO) 2.5 % (21-51); MEAN CORPUSCULAR HEMOGLOBIN 28.2 PG (27.0-31.0); MEAN CORPUSCULAR VOLUME 88.2 FL (78-98); MEAN PLATELET VOLUME 8.6 FL (7.4-10.4); MONOCYTES # (AUTO) 0.4 X10'3 (0-0.9); MONOCYTES % (AUTO) 2.6 % (2-12); NEUTROPHILS # (AUTO) 16.1 X10'3 (1.8-7.7); NEUTROPHILS % (AUTO) 94.9 % (42-75); PLATELET COUNT 198 X10'3 (140-440); RED BLOOD COUNT 3.36 X10'6 (4.70-6.10); RED CELL DISTRIBUTION WIDTH 17.9 % (11.5-14.5)
[2024-03-30 06:52] LABS: ALBUMIN 2.4 G/DL (3.4-5.0); ANION GAP 6 (8-16); BLOOD UREA NITROGEN 50 MG/DL (7-18); BUN/CREATININE RATIO 42.7 (10.0-20.0); CALCIUM 9.6 MG/DL (8.5-10.1); CHLORIDE 97 MMOL/L (99-107); CREATININE 1.17 MG/DL (0.60-1.10); GLUCOSE 259 MG/DL (70-104); SODIUM 134 MMOL/L (135-145); TOTAL CARBON DIOXIDE 30.8 MMOL/L (24-32); eCRCL 51 ML/MIN; eGFR 60 ML/MIN
[2024-03-30] MEDS ORDERED: CEFD300C3 PO (10:20)
[2024-03-30] MEDS ORDERED: PRED10TA23 PO (10:20)
[2024-03-30] MEDS ORDERED: FLUT1DIS4 INH (10:20)
[2024-03-30 10:21] LABS: PLATELET ESTIMATE NORMAL
[2024-03-30] MEDS ORDERED: APIX5TAB3 PO (10:23)
[2024-03-30] MEDS: methylPREDNISolone sod succ 125mg/2ml vial IV SCH (19:59)
[2024-03-30] MEDS: apixaban 5mg tablet PO SCH (20:00)
[2024-03-31] VITALS (13 sets, daily range): BP systolic 129–141; BP diastolic 73–79; PULSE 63–103; RESP 16–21; TEMP 97.8–98.3; O2SAT 93–98
[2024-03-31 07:11] LABS: BASOPHILS % (AUTO) 0.1 % (0-1); EOSINOPHILS % (AUTO) 0 % (0-6); HEMATOCRIT 30.6 % (42.0-52.0); HEMOGLOBIN 9.7 g/dl (14.0-17.9); LYMPHOCYTES # (AUTO) 0.4 X10'3 (1.1-4.8); LYMPHOCYTES % (AUTO) 2.9 % (21-51); MEAN CORPUSCULAR HGB CONC 31.6 g/dL (33.0-36.5); MEAN CORPUSCULAR VOLUME 88.6 FL (78-98); MEAN PLATELET VOLUME 8.2 FL (7.4-10.4); MONOCYTES # (AUTO) 0.5 X10'3 (0-0.9); MONOCYTES % (AUTO) 3.1 % (2-12); NEUTROPHILS # (AUTO) 13.9 X10'3 (1.8-7.7); NEUTROPHILS % (AUTO) 93.9 % (42-75); PLATELET COUNT 204 X10'3 (140-440); RED BLOOD COUNT 3.45 X10'6 (4.70-6.10); RED CELL DISTRIBUTION WIDTH 18.2 % (11.5-14.5); WHITE BLOOD COUNT 14.8 X10'3 (4.5-11.0)
[2024-03-31 07:29] LABS: ALBUMIN 2.5 G/DL (3.4-5.0); ANION GAP 3 (8-16); BLOOD UREA NITROGEN 48 MG/DL (7-18); BUN/CREATININE RATIO 42.5 (10.0-20.0); CALCIUM 9.5 MG/DL (8.5-10.1); CHLORIDE 99 MMOL/L (99-107); CREATININE 1.13 MG/DL (0.60-1.10); GLUCOSE 215 MG/DL (70-104); POTASSIUM 4.9 MMOL/L (3.5-5.1); SODIUM 137 MMOL/L (135-145); TOTAL CARBON DIOXIDE 34.6 MMOL/L (24-32); eCRCL 53 ML/MIN; eGFR 62 ML/MIN
[2024-03-31] MEDS: mineral oil 133ml enema RC STA (09:59)
[2024-03-31] MEDS ORDERED: ATOR10TA PO (15:55)
== END 2024-03-31 16:07 | disposition home or self-care (01) | DRG 871 ==
LOC: ER 17:51 → ED HOLD 20:02 → PCU 3S 03-28 18:50
PROVIDERS: ADMIT Internal Medicine Sleep Medicine; ATTEND Family Medicine
DX: A41.9 Sepsis, unspecified organism (principal); I50.43 Acute on chronic combined systolic (congestive) and diastolic (congestive) heart failure; J18.9 Pneumonia, unspecified organism; J44.0 Chronic obstructive pulmonary disease with (acute) lower respiratory infection; J44.1 Chronic obstructive pulmonary disease with (acute) exacerbation; J98.11 Atelectasis; N17.9 Acute kidney failure, unspecified; E11.9 Type 2 diabetes mellitus without complications; I11.0 Hypertensive heart disease with heart failure; I35.0 Nonrheumatic aortic (valve) stenosis; E78.5 Hyperlipidemia, unspecified; I48.0 Paroxysmal atrial fibrillation; D64.9 Anemia, unspecified; J20.9 Acute bronchitis, unspecified; K59.09 Other constipation; Z79.01 Long term (current) use of anticoagulants; Z79.51 Long term (current) use of inhaled steroids; Z79.84 Long term (current) use of oral hypoglycemic drugs; Z79.899 Other long term (current) drug therapy; Z83.3 Family history of diabetes mellitus; Z87.891 Personal history of nicotine dependence; Z99.81 Dependence on supplemental oxygen; Z88.1 Allergy status to other antibiotic agents
CPT/HCPCS: 36415; 71045; 71250; 74176; 80048; 80053; 81003; 82948; 83605; 83880; 84145; 84484; 85008; 85025; 85610; 86885; 86900; 86901; 87040; 87081; 93005; 94640; 94760; 96365; 96375; 97116; 97161; 97530; 99285; A4615; G0378; J0456; J0696; J1815; J1940; J2405; J2919; J3490; J7040

== ENCOUNTER 2024-04-01 13:25 | Inpatient (IN) | payer MEDICARE, MEDICAID ==
[~2024-04-01] VITALS: Ht 177.8 cm; Wt 77.3 kg
[~2024-04-01 13:25] MED LIST changes: +APIX5TAB3 PO; -ATOR-2 PO; +ATOR10TA PO; -BUDE0.5A11 NEB; +CEFD300C3 PO; +FLUT1DIS4 INH; -METF-1203 PO; +PRED10TA23 PO; -PRED20TA PO
[2024-04-01 14:21] LABS: BASOPHILS % (AUTO) 0.1 % (0-1); EOSINOPHILS % (AUTO) 0 % (0-6); HEMATOCRIT 33.7 % (42.0-52.0); HEMOGLOBIN 10.6 g/dl (14.0-17.9); LYMPHOCYTES # (AUTO) 1.7 X10'3 (1.1-4.8); LYMPHOCYTES % (AUTO) 11.7 % (21-51); MEAN CORPUSCULAR HEMOGLOBIN 28.1 PG (27.0-31.0); MEAN CORPUSCULAR HGB CONC 31.4 g/dL (33.0-36.5); MEAN CORPUSCULAR VOLUME 89.5 FL (78-98); MEAN PLATELET VOLUME 8.1 FL (7.4-10.4); MONOCYTES # (AUTO) 1.3 X10'3 (0-0.9); MONOCYTES % (AUTO) 8.7 % (2-12); NEUTROPHILS # (AUTO) 11.5 X10'3 (1.8-7.7); NEUTROPHILS % (AUTO) 79.5 % (42-75); PLATELET COUNT 236 X10'3 (140-440); RED BLOOD COUNT 3.77 X10'6 (4.70-6.10); RED CELL DISTRIBUTION WIDTH 17.6 % (11.5-14.5); WHITE BLOOD COUNT 14.4 X10'3 (4.5-11.0)
[2024-04-01] MEDS: methylPREDNISolone sod succ 125mg/2ml vial IV ONE (14:24)
[2024-04-01 14:40] LABS: ALANINE AMINOTRANSFERASE 34 U/L (12-78); ALBUMIN 2.7 G/DL (3.4-5.0); ALBUMIN/GLOBULIN RATIO 0.7 (1.1-1.5); ALKALINE PHOSPHATASE 67 IU/L (46-116); ASPARTATE AMINO TRANSFERASE 27 U/L (10-37); BILIRUBIN,TOTAL 0.5 MG/DL (0.1-1.0); BLOOD UREA NITROGEN 38 MG/DL (7-18); BUN/CREATININE RATIO 35.8 (10.0-20.0); CALCIUM 9.3 MG/DL (8.5-10.1); CHLORIDE 96 MMOL/L (99-107); CREATININE 1.06 MG/DL (0.60-1.10); GLUCOSE 95 MG/DL (70-104); PRO BRAIN NATRIURETIC PEPTIDE 1830 PG/ML (0-450); TOTAL CARBON DIOXIDE 39.7 MMOL/L (24-32); TOTAL PROTEIN 6.4 G/DL (6.4-8.2); eCRCL 56 ML/MIN; eGFR 67 ML/MIN
[2024-04-01 14:42] LABS: ANION GAP 1 (8-16); POTASSIUM 4.3 MMOL/L (3.5-5.1); SODIUM 137 MMOL/L (135-145)
[2024-04-01] MEDS: albuterol 2.5 MG/3 ML nebule CONTNEB PRN ×2 (14:57→17:46)
[2024-04-01 14:58] VITALS: PULSE 90; RESP 19; O2SAT 90
[2024-04-01 14:59] LABS: D-DIMER 0.88 MG/L FEU (0-0.50)
[2024-04-01] MEDS ORDERED: iohexol 350MG/ML 100ml bottle IV ONE (17:31)
[2024-04-01] MEDS ORDERED: magnesium Cl slow-release 64mg tablet PO PRN (19:10)
[2024-04-01] MEDS ORDERED: acetaminophen 325mg tablet PO PRN (19:10)
[2024-04-01] MEDS ORDERED: potassium Cl 20 mEq SR tablet PO PRN ×2 (19:10)
[2024-04-01] MEDS ORDERED: mag hydrox/Alum hydrox/simeth 30ml oral suspension PO PRN (19:10)
[2024-04-01] MEDS ORDERED: magnesium sulf-water 2g/50mL 50 ML IV PRN (19:10)
[2024-04-01] MEDS ORDERED: ondansetron/PF 4mg/2ml inj IV PRN (19:10)
[2024-04-01] MEDS ORDERED: magnesium sulf-water 4G/100mL 100 ML IV PRN (19:10)
[2024-04-01] MEDS ORDERED: potassium Cl 40MEQ/1/2NS 520ml 520 ML IV PRN (19:10)
[2024-04-01] MEDS: ipratropium/albuterol 3ml nebule NEB SCH (19:40)
[2024-04-01 19:41] VITALS: PULSE 98; RESP 16; O2SAT 95
[2024-04-01 19:54] LABS: ABG OXYGEN SATURATION 96.2 % (94.0-98.0); ABG PCO2 (T) 54.3 mmHg (35.0-48.0); ABG PH (T) 7.414 (7.350-7.450); ABG PO2 (T) 83.4 mmHg (83.0-108.0); ALLEN'S TEST POSITIVE; FCOHb 0.3 % (0.5-1.5); FHHb 3.8 % (0.0-5.0); FLOW 3 L/min; FMetHb 0.3 % (0.0-1.5); FO2Hb 95.6 % (94.0-98.0); MODE NASAL CANNULA; TOTAL HEMOGLOBIN 11.2 G/dl (13.5-17.5)
[2024-04-01 19:59] VITALS: PULSE 78; RESP 20
[2024-04-01] MEDS: K and/or MAG REPLACEMENT MC SCH (20:00)
[2024-04-01] MEDS: apixaban 5mg tablet PO SCH (21:41)
[2024-04-01] MEDS: carvedilol 6.25mg tablet PO SCH (21:41)
[2024-04-01] MEDS: furosemide 20 MG/2 ML vial IV SCH (21:41)
[2024-04-01] MEDS: docusate sod 100mg capsule PO SCH (21:41)
[2024-04-01] MEDS: methylPREDNISolone sod succ 125mg/2ml vial IV SCH (21:41)
[2024-04-01] MEDS: CefTRIAXone 2gm/D5W 50ml BAG 50 ML IV SCH (21:42)
[2024-04-01] MEDS: atorvastatin 10mg tablet PO SCH (23:11)
[2024-04-01 23:25] VITALS: PULSE 68; RESP 20; O2SAT 98
[2024-04-01 23:34] VITALS: PULSE 70; RESP 22
[2024-04-02] VITALS (20 sets, daily range): BP systolic 93–133; BP diastolic 57–75; PULSE 70–108; RESP 14–22; TEMP 96.8–98.4; O2SAT 92–100
[2024-04-02 08:18] LABS: BASOPHILS % (AUTO) 0.1 % (0-1); EOSINOPHILS % (AUTO) 0 % (0-6); HEMATOCRIT 31.5 % (42.0-52.0); HEMOGLOBIN 10.1 g/dl (14.0-17.9); LYMPHOCYTES # (AUTO) 0.5 X10'3 (1.1-4.8); LYMPHOCYTES % (AUTO) 5.3 % (21-51); MEAN CORPUSCULAR HEMOGLOBIN 28.7 PG (27.0-31.0); MEAN CORPUSCULAR HGB CONC 32.2 g/dL (33.0-36.5); MEAN CORPUSCULAR VOLUME 89.3 FL (78-98); MEAN PLATELET VOLUME 8.3 FL (7.4-10.4); MONOCYTES # (AUTO) 0.4 X10'3 (0-0.9); MONOCYTES % (AUTO) 3.7 % (2-12); NEUTROPHILS # (AUTO) 9.1 X10'3 (1.8-7.7); NEUTROPHILS % (AUTO) 90.9 % (42-75); PLATELET COUNT 231 X10'3 (140-440); RED BLOOD COUNT 3.52 X10'6 (4.70-6.10); RED CELL DISTRIBUTION WIDTH 17.5 % (11.5-14.5)
[2024-04-02 08:25] LABS: ALANINE AMINOTRANSFERASE 25 U/L (12-78); ALBUMIN 2.4 G/DL (3.4-5.0); ALBUMIN/GLOBULIN RATIO 0.7 (1.1-1.5); ALKALINE PHOSPHATASE 60 IU/L (46-116); ANION GAP 1 (8-16); ASPARTATE AMINO TRANSFERASE 13 U/L (10-37); BILIRUBIN,TOTAL 0.4 MG/DL (0.1-1.0); BLOOD UREA NITROGEN 44 MG/DL (7-18); BUN/CREATININE RATIO 40.7 (10.0-20.0); CALCIUM 9.1 MG/DL (8.5-10.1); CHLORIDE 94 MMOL/L (99-107); CREATININE 1.08 MG/DL (0.60-1.10); GLUCOSE 237 MG/DL (70-104); MAGNESIUM 2.4 MG/DL (1.5-2.4); POTASSIUM 4.7 MMOL/L (3.5-5.1); SODIUM 131 MMOL/L (135-145); TOTAL CARBON DIOXIDE 35.8 MMOL/L (24-32); TOTAL PROTEIN 5.7 G/DL (6.4-8.2); eCRCL 55 ML/MIN; eGFR 66 ML/MIN
[2024-04-02] MEDS: magnesium hydroxide 30ml (MOM) UD suspension PO PRN (14:28)
[2024-04-02] MEDS ORDERED: METF-1203 PO (23:14)
[2024-04-03] VITALS (18 sets, daily range): BP systolic 113–129; BP diastolic 57–68; PULSE 62–106; RESP 16–20; TEMP 97–98.2; O2SAT 94–98
[2024-04-03] MEDS ORDERED: glucagon, human recombinant 1mg kit SUBCUT PRN (02:55)
[2024-04-03] MEDS ORDERED: DEXTROSE 15 GM of carb/4 tabs (each vial/BOTTLE has 4 tablets) PO PRN ×2 (02:55)
[2024-04-03] MEDS ORDERED: dextrose 50%-water 50ml dispensing syringe IV PRN ×2 (02:55)
[2024-04-03] MEDS: INSULIN LISPRO 100 UNIT/ML INSULN.PEN MULTI-DOSE SQ SCH (07:00)
[2024-04-03 08:19] LABS: HEMOGLOBIN A1C 7.5 % (4.5-6.2)
[2024-04-03 08:20] LABS: BASOPHILS % (AUTO) 0.1 % (0-1); EOSINOPHILS % (AUTO) 0 % (0-6); HEMATOCRIT 30.3 % (42.0-52.0); HEMOGLOBIN 9.6 g/dl (14.0-17.9); LYMPHOCYTES # (AUTO) 0.5 X10'3 (1.1-4.8); LYMPHOCYTES % (AUTO) 3.8 % (21-51); MEAN CORPUSCULAR HEMOGLOBIN 27.9 PG (27.0-31.0); MEAN CORPUSCULAR HGB CONC 31.8 g/dL (33.0-36.5); MEAN CORPUSCULAR VOLUME 87.7 FL (78-98); MEAN PLATELET VOLUME 8.1 FL (7.4-10.4); MONOCYTES # (AUTO) 0.4 X10'3 (0-0.9); NEUTROPHILS # (AUTO) 12.4 X10'3 (1.8-7.7); NEUTROPHILS % (AUTO) 93.1 % (42-75); PLATELET COUNT 210 X10'3 (140-440); RED BLOOD COUNT 3.46 X10'6 (4.70-6.10); RED CELL DISTRIBUTION WIDTH 17.3 % (11.5-14.5); WHITE BLOOD COUNT 13.3 X10'3 (4.5-11.0)
[2024-04-03 08:35] LABS: ALANINE AMINOTRANSFERASE 23 U/L (12-78); ALBUMIN 2.3 G/DL (3.4-5.0); ALBUMIN/GLOBULIN RATIO 0.7 (1.1-1.5); ALKALINE PHOSPHATASE 57 IU/L (46-116); ANION GAP 1 (8-16); ASPARTATE AMINO TRANSFERASE 12 U/L (10-37); BILIRUBIN,TOTAL 0.4 MG/DL (0.1-1.0); BLOOD UREA NITROGEN 43 MG/DL (7-18); BUN/CREATININE RATIO 38.4 (10.0-20.0); CALCIUM 8.7 MG/DL (8.5-10.1); CHLORIDE 92 MMOL/L (99-107); CREATININE 1.12 MG/DL (0.60-1.10); GLUCOSE 272 MG/DL (70-104); MAGNESIUM 2.3 MG/DL (1.5-2.4); POTASSIUM 4.3 MMOL/L (3.5-5.1); SODIUM 129 MMOL/L (135-145); TOTAL CARBON DIOXIDE 36.1 MMOL/L (24-32); TOTAL PROTEIN 5.7 G/DL (6.4-8.2); eCRCL 53 ML/MIN; eGFR 63 ML/MIN
[2024-04-03] MEDS ORDERED: furosemide 40mg/4ml inj IV SCH (15:51)
[2024-04-03 16:34] LABS: OSMOLALITY 297 MOSM/K (280-300)
[2024-04-03] MEDS: furosemide 20 MG/2 ML vial IV SCH (20:52)
[2024-04-03] MEDS: insulin glargine (Lantus) pen - multi-dose SQ SCH (21:16)
[2024-04-03] MEDS: normal saline 1000ml 1,000 ML IV SCH (23:50)
[2024-04-04] VITALS (10 sets, daily range): BP systolic 102–128; BP diastolic 66–69; PULSE 64–77; RESP 14–20; TEMP 97–97.7; O2SAT 95–98
[2024-04-04 07:32] LABS: BASOPHILS % (AUTO) 0.1 % (0-1); EOSINOPHILS % (AUTO) 0 % (0-6); HEMATOCRIT 31.9 % (42.0-52.0); HEMOGLOBIN 9.9 g/dl (14.0-17.9); LYMPHOCYTES # (AUTO) 0.5 X10'3 (1.1-4.8); LYMPHOCYTES % (AUTO) 3.5 % (21-51); MEAN CORPUSCULAR HGB CONC 31.1 g/dL (33.0-36.5); MEAN PLATELET VOLUME 7.8 FL (7.4-10.4); MONOCYTES # (AUTO) 0.3 X10'3 (0-0.9); MONOCYTES % (AUTO) 2.3 % (2-12); NEUTROPHILS # (AUTO) 12.4 X10'3 (1.8-7.7); NEUTROPHILS % (AUTO) 94.1 % (42-75); PLATELET COUNT 195 X10'3 (140-440); RED BLOOD COUNT 3.54 X10'6 (4.70-6.10); RED CELL DISTRIBUTION WIDTH 17.2 % (11.5-14.5); WHITE BLOOD COUNT 13.2 X10'3 (4.5-11.0)
[2024-04-04] MEDS ORDERED: azithromycin/NS 500mg/250ml 250 ML IV SCH (08:00)
[2024-04-04 08:12] LABS: ALANINE AMINOTRANSFERASE 22 U/L (12-78); ALBUMIN 2.2 G/DL (3.4-5.0); ALBUMIN/GLOBULIN RATIO 0.7 (1.1-1.5); ALKALINE PHOSPHATASE 54 IU/L (46-116); ANION GAP 3 (8-16); ASPARTATE AMINO TRANSFERASE 15 U/L (10-37); BILIRUBIN,TOTAL 0.3 MG/DL (0.1-1.0); BLOOD UREA NITROGEN 51 MG/DL (7-18); BUN/CREATININE RATIO 45.5 (10.0-20.0); CALCIUM 8.5 MG/DL (8.5-10.1); CHLORIDE 94 MMOL/L (99-107); CREATININE 1.12 MG/DL (0.60-1.10); GLUCOSE 276 MG/DL (70-104); MAGNESIUM 2.2 MG/DL (1.5-2.4); POTASSIUM 4.5 MMOL/L (3.5-5.1); SODIUM 129 MMOL/L (135-145); TOTAL CARBON DIOXIDE 31.7 MMOL/L (24-32); TOTAL PROTEIN 5.4 G/DL (6.4-8.2); eCRCL 53 ML/MIN; eGFR 63 ML/MIN
[2024-04-04 08:44] LABS: OSMOLALITY 297 MOSM/K (280-300)
[2024-04-04] MEDS: furosemide 20 MG/2 ML vial IV ONE (14:15)
[2024-04-04 14:29] LABS: ABG HCO3 28.3 mmol/L (21.0-28.0); ABG OXYGEN SATURATION 95.3 % (94.0-98.0); ABG PCO2 (T) 40.6 mmHg (35.0-48.0); ALLEN'S TEST POSITIVE; FCOHb 0.3 % (0.5-1.5); FHHb 4.7 % (0.0-5.0); FLOW 3 L/min; FMetHb 0.3 % (0.0-1.5); FO2Hb 94.7 % (94.0-98.0); MODE NC; PATIENT TEMPERATURE 36.5; TOTAL HEMOGLOBIN 11.4 G/dl (13.5-17.5)
== END 2024-04-04 19:30 | DRG 291 ==
LOC: ER 13:25 → ED HOLD 19:10 → PCU 3S 04-02 03:00
PROVIDERS: ADMIT Nurse Practitioner Family; ATTEND Nurse Practitioner Family
PROC: B32T1ZZ Computerized Tomography (CT Scan) of Left Pulmonary Artery using Low Osmolar Contrast (ICD-10-PCS; principal; 2024-04-01)
PROC: B3201ZZ Computerized Tomography (CT Scan) of Thoracic Aorta using Low Osmolar Contrast (ICD-10-PCS; 2024-04-01)
PROC: B32S1ZZ Computerized Tomography (CT Scan) of Right Pulmonary Artery using Low Osmolar Contrast (ICD-10-PCS; 2024-04-01)
DX: I11.0 Hypertensive heart disease with heart failure (principal); I50.33 Acute on chronic diastolic (congestive) heart failure; J96.01 Acute respiratory failure with hypoxia; J96.02 Acute respiratory failure with hypercapnia; J44.1 Chronic obstructive pulmonary disease with (acute) exacerbation; R65.10 Systemic inflammatory response syndrome (SIRS) of non-infectious origin without acute organ dysfunction; E87.1 Hypo-osmolality and hyponatremia; E87.29 Other acidosis; D64.9 Anemia, unspecified; F19.90 Other psychoactive substance use, unspecified, uncomplicated; I35.0 Nonrheumatic aortic (valve) stenosis; E11.9 Type 2 diabetes mellitus without complications; E78.00 Pure hypercholesterolemia, unspecified; K59.00 Constipation, unspecified; I48.0 Paroxysmal atrial fibrillation; Z79.01 Long term (current) use of anticoagulants; Z79.899 Other long term (current) drug therapy; Z88.1 Allergy status to other antibiotic agents; Z95.0 Presence of cardiac pacemaker; Z83.3 Family history of diabetes mellitus; Z87.891 Personal history of nicotine dependence; Z99.81 Dependence on supplemental oxygen
CPT/HCPCS: 36415; 36600; 71045; 71275; 80053; 82803; 82948; 83036; 83605; 83735; 83880; 83930; 84484; 85018; 85025; 85379; 87081; 93005; 94640; 94760; 96374; 97161; 97530; 99285; A4615; A7015; G0378; J0696; J1815; J1940; J2919; J7030; Q9967